=== PATIENT | male | born 1960 | race Caucasian/White ===

== ENCOUNTER 2018-07-21 16:11 | Inpatient (IN) ==
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
[2018-07-21 16:24] LABS: Basophils # 0.1 K/mm3 (0-0.2); Basophils % 0.5 % (0.1-2.0); Eosinophils # 0.8 K/mm3 (0.0-0.4); Eosinophils % 6.3 % (0.1-12.0); Hematocrit 48.1 % (42.0-52.0); Hemoglobin 15.8 g/dL (14.1-18.0); Lymphocytes # 5.1 K/mm3 (0.7-4.5); Lymphocytes % 40.4 % (10-50); Mean Corpuscular HGB Conc 32.9 g/dL (31.8-35.4); Mean Corpuscular Hemoglobin 29.3 pg (27.0-31.2); Mean Corpuscular Volume 88.9 fl (80-94); Mean Platelet Volume 8.2 fl (7.4-10.4); Monocytes # 0.7 K/mm3 (0.1-1.0); Monocytes % 5.9 % (1.7-9.3); Neutrophils # 5.9 K/mm3 (1.8-7.8); Platelet Count 281 K/mm3 (142-424); Red Cell Distribution Width 13.8 % (11.5-17.5); White Blood Count 12.5 K/mm3 (4.8-10.8)
[2018-07-21 16:38] LABS: Blood Urea Nitrogen 10 mg/dL (7-18); Calcium 9.1 mg/dL (8.5-10.1); Carbon Dioxide 26 mmol/L (21.0-32.0); Chloride 103 mmol/L (98-107); Glucose 115 mg/dL (74-106); Sodium 141 mmol/L (136-145)
[2018-07-22 07:10] LABS: Eosinophils # 0.4 K/mm3 (0.0-0.4); Eosinophils % 2.9 % (0.1-12.0)
[2018-07-22 07:16] LABS: Basophils # 0.1 K/mm3 (0-0.2); Basophils % 0.4 % (0.1-2.0); Hematocrit 42.7 % (42.0-52.0); Lymphocytes # 3.1 K/mm3 (0.7-4.5); Mean Corpuscular HGB Conc 32.3 g/dL (31.8-35.4); Mean Corpuscular Hemoglobin 29.2 pg (27.0-31.2); Mean Corpuscular Volume 90.4 fl (80-94); Mean Platelet Volume 7.2 fl (7.4-10.4); Monocytes # 0.6 K/mm3 (0.1-1.0); Monocytes % 4.8 % (1.7-9.3); Neutrophils # 8.7 K/mm3 (1.8-7.8); Neutrophils % 67.9 % (37.0-80.0); Platelet Count 240 K/mm3 (142-424); Red Blood Count 4.73 M/mm3 (4.60-6.20); White Blood Count 12.8 K/mm3 (4.8-10.8)
[2018-07-22 07:18] LABS: Activated Partial Thrombo Time 25.4 seconds (23.6-34.0); INR 0.99 (0.9-1.1); Prothrombin Time 10.2 seconds (9.4-11.8)
[2018-07-22 07:19] LABS: Hemoglobin 13.8 g/dL (14.1-18.0)
[2018-07-22 07:30] LABS: Anion Gap 13.4 mEq/L (5-15); Calcium 8.3 mg/dL (8.5-10.1); Potassium 3.4 mmoL/L (3.5-5.1)
[2018-07-22 07:34] LABS: Chol/HDL Ratio 11.1 (1-3.5); Cholesterol 199 mg/dL (140-200); HDL Cholesterol 18 mg/dL (27-67)
[2018-07-22 08:01] LABS: Triglycerides 511 mg/dL (30-200)
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
--- NOTE | 2018-07-22 14:59 | Pharmacy Consult Notes ---
[facility] Pharmacy VTE Monitoring - Patient Demographics Admission date: 07/22/18 Report Date: 07/22/18 Time: 14:59 Allergies/Adverse Reactions: Patient Allergies Penicillins [PENICILLINS] Allergy (Severe, Verified 07/21/18 16:19) NONRESPONSIVE Height: 1.7 m Weight: 88.082 kg Patient Problems: Current Active Problems STEMI (ST elevation myocardial infarction) (Acute) CAD (coronary artery disease) (Acute) Tobacco use disorder (Acute) Cardiac arrest (Acute) Penicillin allergy (Acute) Hyperglyceridemia (Acute) (HFpEF) heart failure with preserved ejection fraction (Acute) Hypokalemia (Acute) - VTE Risk Labs: VTE Related Lab Results Hgb 13.8 g/dL (14.1-18.0) L D 07/22/18 06:41 Hct 42.7 % (42.0-52.0) 07/22/18 06:41 Plt Count 240 K/mm3 (142-424) 07/22/18 06:41 PT 10.2 seconds (9.4-11.8) 07/22/18 06:41 INR 0.99 (0.9-1.1) 07/22/18 06:41 APTT 25.4 seconds (23.6-34.0) 07/22/18 06:41 BUN 11 mg/dL (7-18) 07/22/18 06:41 Creatinine 0.81 mg/dL (0.70-1.30) 07/22/18 06:41 Estimated Creat Clear 125 mL/min (50-200) 07/22/18 06:41 Was VTE Risk Assessment Performed: Yes VTE Score: 2 VTE Risk Level: Very Low Risk - Prophylaxis VTE Prophylaxis Ordered?: Yes Types of VTE Prophylaxis: TEDS Knee High (ANIA HOSE ORDER PLACED.)
--- NOTE | 2018-07-23 08:59 | Progress Note ---
Internal Medicine - PN: Subj *Date: 07/23/18 *Time: 08:58 Interval history: Patient doing well and is not having any complaints today. Eager to go home today. Exam Vital signs and Labs for Last 24 Hours: Temp Pulse Resp BP Pulse Ox 98.4 F 77 22 149/68 H 97 07/23/18 07:51 07/23/18 07:51 07/23/18 07:51 07/23/18 07:51 07/23/18 08:35 I & O for Last 24 hours: Intake & Output 07/20/18 07/21/18 07/22/18 07/23/18 11:59 11:59 11:59 11:59 Intake Total 2913 / 2913 1680 / 1680 Output Total 1100 / 1100 Balance 1813 / 1813 1680 / 1680 Weight 194 lb 3 oz 194 lb 6 oz - *Routine HEENT Exam Head: Present: normocephalic Eye: Present: EOMI, PERRL ENT: Present: mucous membranes moist - *Routine Neck Exam Present: supple. Absent: lymphadenopathy - *Routine Respiratory Exam Present: CTA bilaterally - *Routine Cardiovascular Exam Present: RRR - *Routine Abdominal Exam Present: soft, normoactive bowel sounds. Absent: tenderness - *Routine Extremities Exam Absent: cyanosis, clubbing, edema - *Routine Skin Exam Present: warm. Absent: rash - *Routine Neurological Exam Present: alert, oriented X3 Assessment and Plan (1) STEMI (ST elevation myocardial infarction) Current visit: Yes Status: Acute Category: Medical Code(s): I21.3 - ST elevation (STEMI) myocardial infarction of unspecified site (2) CAD (coronary artery disease) Current visit: Yes Status: Acute Category: Medical Code(s): I25.10 - Atherosclerotic heart disease of [place] coronary artery without angina pectoris (3) Cardiac arrest Current visit: Yes Status: Acute Category: Medical Code(s): I46.9 - Cardiac arrest, cause unspecified (4) Tobacco use disorder Current visit: Yes Status: Acute Category: Medical Code(s): F17.200 - Nicotine dependence, unspecified, uncomplicated (5) Hyperglyceridemia Current visit: Yes Status: Acute Category: Medical Code(s): E78.1 - Pure hyperglyceridemia (6) (HFpEF) heart failure with preserved ejection fraction Current visit: Yes Status: Acute Category: Medical Code(s): I50.30 - Unspecified diastolic (congestive) heart failure (7) Hypokalemia Current visit: Yes Status: Acute Category: Medical Code(s): E87.6 - Hypokalemia - Assessment and plan all Dx Assessment and Plan for all problems:: will dc home today with cardiac meds if cardiology agrees.
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
== END 2018-07-23 12:46 | disposition home or self-care (01) | DRG 246 ==
LOC: ER 16:11 → CATHLAB 16:15 → ER 16:31 → CATHLAB 16:31 → 2ND 17:58
PROVIDERS: ADMIT Emergency Medicine; ATTEND Emergency Medicine
CPT/HCPCS: 36415; 71010; 71045; 80048; 80061; 83735; 84484; 85025; 85347; 85610; 85730; 92928; 93005; 93458; 96365; 96367; 96375; 99203; C9600; J0282; J1327; J1644; J2405; Q9967

== ENCOUNTER → 2018-07-31 09:04 | Outpatient (CLI) | payer MEDICAID, SELFPAY ==
[2018-07-31 09:43] LABS: Hematocrit 45.7 % (42.0-52.0); Hemoglobin 15.1 g/dL (14.1-18.0)
[2018-07-31 10:34] LABS: Blood Urea Nitrogen 16 mg/dL (7-18); Creatinine,Serum 0.82 mg/dL (0.70-1.30); Estimated Glomerular Filt Rate 97 ml/min (>60); GFR (African American) 117 ML/MIN (>60)
== END ==
PROVIDERS: Visit Provider Internal Medicine
DX: I25.10 Atherosclerotic heart disease of native coronary artery without angina pectoris (principal); I21.3 ST elevation (STEMI) myocardial infarction of unspecified site; I50.30 Unspecified diastolic (congestive) heart failure; E87.6 Hypokalemia; E87.1 Hypo-osmolality and hyponatremia; F17.200 Nicotine dependence, unspecified, uncomplicated
CPT/HCPCS: 36415; 82565; 84520; 85014; 85018

== ENCOUNTER 2018-09-28 12:04 | Observation (INO) ==
--- NOTE | 2018-09-28 12:19 | Emergency Department Note ---
ED Disposition Clinical Impression: Chest pain Qualifiers: Chest pain type: precordial pain Qualified Code(s): R07.2 - Precordial pain Disposition: Admitted as Observation Condition on Discharge: Good - Critical Care Critical Care Time: No Attestation: On , the high probability of a clinically significant, sudden or life threatening deterioration of the following system(s) required my full and direct attention, intervention and personal management. The time I documented below is in addition to time spent performing reported procedures but includes the following listed in this critical care notation. Medical Decision Making - Medical Records Medical records reviewed: Yes: I reviewed the patient's medical records. - Guzman Inquiry Pt receiving controlled substance: Yes Guzman was queried for this patient: Yes Reference #:: x Reason not queried -: Emergent pt cond-no time Risks and benefits of using a controlled substance: were discussed with pt by me Vital Signs: 09/28/18 12:14 09/28/18 12:34 09/28/18 13:07 Temperature 98.0 F Temperature Source Oral Pulse Rate [Left Radial] 57 L 57 L 65 Respiratory Rate 18 Blood Pressure [Right Arm] 135/85 111/79 142/90 H Blood Pressure Mean [Right Arm] 101 89 107 Blood Pressure Source [Right Arm] Automatic Cuff Automatic Cuff Automatic Cuff Blood Pressure Position [Right Arm] Sitting Sitting Sitting 02 Sat by Pulse Oximetry 98 99 99 Oxygen Delivery Method Room Air Nasal Cannula Room Air Oxygen Flow Rate (LPM) 2 - Lab Data Lab results reviewed: Yes: I reviewed the patient's lab results. Lab Results 09/28/18 12:10: WBC 10.7, RBC 4.98, Hgb 14.7, Hct 47.2, MCV 94.7 H, MCH 29.6, MCHC 31.2 L, RDW 14.3, Plt Count 266, MPV 7.4, Neut % (Auto) 46.4, Lymph % (Auto) 36.6, Perry % (Auto) 6.0, Eos % (Auto) 10.2, Baso % (Auto) 0.8, Neut # (Auto) 5.0, Lymph # (Auto) 3.9, Perry # (Auto) 0.6, Eos # (Auto) 1.1 H, Baso # ( Auto) 0.1 09/28/18 12:10: D-Dimer < 100 09/28/18 12:10: Sodium 143, Potassium 4.3, Chloride 107, Carbon Dioxide 26, Anion Gap 14.3, BUN 14, Creatinine 0.97, Estimated Creat Clear 99, Estimated GFR 79, Est GFR ( Amer) 96, Glucose 114 H, Calcium 8.5, Total Bilirubin 0.3, AST 20, ALT 33, Alkaline Phosphatase 110, Troponin I < 0.02, Total Protein 7.0, Albumin 3.6, Globulin 3.4 H, Albumin/Globulin Ratio 1.1, Lipase 285 Result diagrams: 09/28/18 12:10 09/28/18 12:10 Orders (Tests/Meds): ED MEDICATIONS Discontinued Medications Generic Name Dose Route Start Last Admin Trade Name Freq PRN Reason Stop Dose Admin Morphine Sulfate 2 mg 09/28/18 12:16 09/28/18 12:48 Morphine 2mg/Ml Syringe IV 09/28/18 12:17 2 mg ONCE ONE Administration ORDERS Category Date Time Status ECG Request by Dr/Nse Stat Y 09/28/18 12:16 Ordered - Radiology Data #1 Image(s): Chest Image Reviewed: Yes I have reviewed radiologist's interpretation - ECG Data Tracing #1 I reviewed this ECG and interpreted as documented below: Normal Sinus Rhythm: Yes (no stemi) Medical Decision Narrative: consult d/w Dr Hanson ([facility]), will 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, admit d/w Dr Lopez who directs the pt to be admitted by Dr Alston General Adult HPI - General Stated complaint: chest pain Time Seen by Provider: 09/28/18 12:17 Mode of Arrival: EMS Source of Information: Patient, EMS - History of Present Illness HPI narrative: mild to mod off and on left chest pain tight for one hour, nonrad, no injury, no fever, noncompliant w/ meds, hx NE and stents - Related Data Home Medications Medication Instructions Recorded Confirmed Amlodipine Besylate [Amlodipine 5 mg PO DAILY 09/28/18 09/28/18 5mg tab] Aspirin [Aspirin 81mg chewable 81 mg PO DAILY 09/28/18 09/28/18 tab] Fenofibrate [Tricor 54mg tablet] 54 mg PO DAILY 09/28/18 09/28/18 Metoprolol Succinate 25 mg PO DAILY 09/28/18 09/28/18 Ticagrelor [Brilinta 90mg Tablet] 90 mg PO BID 09/28/18 09/28/18 Allergies Allergy/AdvReac Type Severity Reaction Status Date / Time Penicillins [PENICILLINS] Allergy Severe NONRESPONSI Verified 07/31/18 09:59 VE [facility] History - Hepatitis A Screen Attestation statement:: This patient has been screened for Hepatitis A risk factors. Medical History: Reports:: Arrhythmia, Atherosclerotic Heart Disease, Atrial Fibrillation, Coronary Artery Disease, Hyperlipidemia, Hypertension Denies:: Anxiety, Cancer, Diabetes Mellitus Type 1, Diabetes Mellitus Type 2, MRSA Other Surgeries: Yes: Appendectomy, Cardiac Catheterization, Coronary Stent, Other Amputation: No Fractures: Yes - Social History Smoking Status: Current every day smoker Tobacco Type: cigarettes # Packs/Day (cigarettes): 1 Alcohol Intake: never Substance Use Type: denies use Occupational Status: employed Housing: house Household Members: other - Psychiatric History Pschychiatric History:: Denies:: Anxiety, Post Traumatic Stress Disorder, Suicide Attempt, Psychiatr ic Treatment Family Hx:: Other (lung disease), no Cancer, no Hyperlipidemia ROS Obtained: Yes Systems reviewed as appropriate & no additional complaints - Constitutional Constitutional: Denies fever(s) - Eyes Eyes: Denies change in vision - ENT Ears, Nose, Mouth, and Throat: Denies neck pain - Cardiovascular Cardiovascular: Reports chest pain - Respiratory Respiratory: No dyspnea - Gastrointestinal Gastrointestingal: Denies: abdominal pain - Musculoskeletal Musculoskeletal: Denies back pain - Integumentary/Breasts Skin/Breast: Denies rash - Neurologic Neurologic: Denies dizziness Physical Exam - General General appearance: alert - Head Head exam: atraumatic - Eye Eye exam: Present: normal appearance - ENT ENT exam: Present: normal exam - Neck Neck exam: Present: normal inspection - Chest Chest inspection: Present: normal inspection - Respiratory Respiratory exam: Present: normal lung sounds bilaterally - Cardiovascular Cardiovascular exam: Present: regular rate, normal rhythm - Abdominal Exam Abdominal exam: Present: soft. Absent: tenderness - Extremities Exam Extremities exam: Present: normal inspection - Back Exam Back exam: Absent: vertebral tenderness - Neurological Exam Neurological exam: Present: alert, oriented X3 - Psychiatric Psychiatric exam: Present: normal affect, normal mood - Skin Skin exam: Present: warm, dry
[2018-09-28 12:28] LABS: Basophils # 0.1 K/mm3 (0-0.2); Basophils % 0.8 % (0.1-2.0); Eosinophils # 1.1 K/mm3 (0.0-0.4); Eosinophils % 10.2 % (0.1-12.0); Hematocrit 47.2 % (42.0-52.0); Hemoglobin 14.7 g/dL (14.1-18.0); Lymphocytes # 3.9 K/mm3 (0.7-4.5); Lymphocytes % 36.6 % (10-50); Mean Corpuscular HGB Conc 31.2 g/dL (31.8-35.4); Mean Corpuscular Hemoglobin 29.6 pg (27.0-31.2); Mean Corpuscular Volume 94.7 fl (80-94); Mean Platelet Volume 7.4 fl (7.4-10.4); Monocytes # 0.6 K/mm3 (0.1-1.0); Neutrophils % 46.4 % (37.0-80.0); Platelet Count 266 K/mm3 (142-424); Red Blood Count 4.98 M/mm3 (4.60-6.20); Red Cell Distribution Width 14.3 % (11.5-17.5); White Blood Count 10.7 K/mm3 (4.8-10.8)
[2018-09-28 12:39] LABS: Alanine Aminotransferase 33 U/L (12-78); Albumin Level 3.6 gm/dL (3.4-5.0); Albumin/Globulin Ratio 1.1 (1.1-1.8); Alkaline Phosphatase 110 U/L (46-116); Anion Gap 14.3 mEq/L (5-15); Bilirubin,Total 0.3 mg/dL (0.2-1.0); Blood Urea Nitrogen 14 mg/dL (7-18); Calcium 8.5 mg/dL (8.5-10.1); Carbon Dioxide 26 mmol/L (21.0-32.0); Chloride 107 mmol/L (98-107); Globulin 3.4 gm/dl (1.3-3.2); Glucose 114 mg/dL (74-106); Lipase 285 u/L (73-393); Sodium 143 mmol/L (136-145)
[2018-09-28 12:40] LABS: Aspartate Amino Transferase 20 U/L (15-37); Potassium 4.3 mmoL/L (3.5-5.1)
--- NOTE | 2018-09-28 14:16 | Consult Report ---
History of Present Illness Consult date: 09/28/18 Requesting physician: Barb Lopez Consult reason: chest pain Chief complaint: chest pain Additional Medical History:: 1. Tobacco use, greater than [id number] history 2. History of hyperlipidemia 3. Coronary artery disease A. History of myocardial infarction approximately 2011 with 4 coronary stents placed at the [place], [place] B. STEMI, V. Tach arrest with subsequent cardiac cath, 06/2018 ANGIOGRAPHIC RESULTS: 1. The left main artery angiographically normal 2. The left anterior descending artery had a stent in its midportion. 99.9% in-stent stenosis with LOU II distal flow 3. The circumflex artery had a stent in its midportion. 99% in-stent stenosis with LOU II distal flow 4. Ramus intermedius with stent in its proximal portion with sequential 85% stenosis 5. The right coronary artery large and dominant with 75% eccentric proximal stenosis 6. The OCONNOR ventriculogram reveals normal left ventricular systolic function with an ejection fraction of 60% 7. The left ventricular end-diastolic pressure 12 IMPRESSION: 1. Critical four-vessel coronary artery disease 2. Critical in-stent stenosis in the mid left anterior descending with LOU II distal flow 3. Critical in-stent stenosis in the mid left circumflex with LOU II distal flow 4. Critical in-stent stenosis in the proximal ramus 5. Critical de felton stenosis in the proximal large dominant right coronary artery intermedius 6. Normal left ventricular systolic function 7. Normal left ventricular end-diastolic pressure 8. Successful angioplasty and stenting of the mid left anterior descending, the mid left circumflex, the proximal ramus intermedius and the proximal large dominant right coronary artery with resolute [place] drug-eluting stents resulting in 0% residual stenosis 9. Successful placement of Angio-Seal device in the right common femoral artery PLAN: 1. Brilinta 180 mg x1 now than 90 mg twice daily 2. Amiodarone bolus was given secondary to ventricular tachycardia. Patient will be monitored on telemetry 3. Aggressive risk factor modification 4. History of medication noncompliance 5. HTN History of present illness: 58 yo WM with known CAD, recent multi-vessel stenting with V. fib arrest in 06/2018 presented for evaluation of recurrent chest pain. Symptoms the same as p reviously experienced in 06/2018. Pt relates no money for meds for one month. Symptoms of chest tightness and pressure began after walking to the store today. Came to ER for evaluation. EKG is sinus barrett without acute changes. Initial troponin normal. Cardiology consulted for evaluation. [facility] History Medical History: Reports:: Arrhythmia, Atherosclerotic Heart Disease, Atrial Fibrillation, Coronary Artery Disease, Hyperlipidemia, Hypertension Denies:: Anxiety, Cancer, Diabetes Mellitus Type 1, Diabetes Mellitus Type 2, MRSA *Have you ever received a pneumonia vaccine?: No *Have you received a flu vaccine this season?: No Other Surgeries: Yes: Appendectomy, Cardiac Catheterization, Coronary Stent, Other Amputation: No Fractures: Yes - *Social History Smoking Status: Current every day smoker Tobacco Type: cigarettes # Packs/Day (cigarettes): 1 Alcohol Intake: never Substance Use Type: denies use *Occupational Status:: employed Housing: house Household Members: other *Travel in the last 8 weeks: None - Psychiatric History Expresses thoughts of harming self/others: None Suicide Plan Description: No Plan Pschychiatric History:: Denies:: Anxiety, Post Traumatic Stress Disorder, Suicide Attempt, Psychiatric Treatment Family Hx:: Other (lung disease), no Cancer, no Hyperlipidemia Meds Home Medications Medication Instructions Recorded Confirmed Type Amlodipine Besylate [Amlodipine 5 mg PO DAILY 09/28/18 09/28/18 History 5mg tab] Aspirin [Aspirin 81mg chewable 81 mg PO DAILY 09/28/18 09/28/18 History tab] Fenofibrate [Tricor 54mg tablet] 54 mg PO DAILY 09/28/18 09/28/18 History Metoprolol Succinate 25 mg PO DAILY 09/28/18 09/28/18 History Ticagrelor [Brilinta 90mg Tablet] 90 mg PO BID 09/28/18 09/28/18 History Allergies Allergy/AdvReac Type Severity Reaction Status Date / Time Penicillins [PENICILLINS] Allergy Severe NONRESPONSI Verified 07/31/18 09:59 VE Review of Systems - *Cardiovascular Reports chest pain, Reports shortness of breath with activity - *Respiratory Reports shortness of breath, Reports shortness of breath with activity - *Gastrointestinal Denies abdominal pain, Denies nausea, Denies vomiting - *Genitourinary Denies blood in urine - *Musculoskeletal Denies joint pain, Denies back pain - *Neurologic Denies dizziness Exam Vital signs and Labs for Last 24 Hours: Temp Pulse Resp BP Pulse Ox 98.0 F 65 18 142/90 H 99 09/28/18 12:14 09/28/18 13:07 09/28/18 12:14 09/28/18 13:07 09/28/18 13:07 Laboratory Results - last 24 hr 09/28/18 12:10: WBC 10.7, RBC 4.98, Hgb 14.7, Hct 47.2, MCV 94.7 H, MCH 29.6, MCHC 31.2 L, RDW 14.3, Plt Count 266, MPV 7.4, Neut % (Auto) 46.4, Lymph % (Auto) 36.6, Dickson % (Auto) 6.0, Eos % (Auto) 10.2, Baso % (Auto) 0.8, Neut # (Auto) 5.0, Lymph # (Auto) 3.9, Dickson # (Auto) 0.6, Eos # (Auto) 1.1 H, Baso # (Auto) 0.1 09/28/18 12:10: D-Dimer < 100 09/28/18 12:10: Sodium 143, Potassium 4.3, Chloride 107, Carbon Dioxide 26, Anion Gap 14.3, BUN 14, Creatinine 0.97, Estimated Creat Clear 99, Estimated GFR 79, Est GFR ( Amer) 96, Glucose 114 H, Calcium 8.5, Total Bilirubin 0.3, AST 20, ALT 33, Alkaline Phosphatase 110, Troponin I < 0.02, Total Protein 7.0, Albumin 3.6, Globulin 3.4 H, Albumin/Globulin Ratio 1.1, Lipase 285 I & O for Last 24 hours: Intake & Output 09/26/18 09/27/18 09/28/18 09/29/18 11:59 11:59 11:59 11:59 Weight 185 lb - *Routine HEENT Exam Head: Present: normocephalic Eye: Present: EOMI, PERRL ENT: Present: mucous membranes moist - *Routine Neck Exam Present: supple. Absent: JVD, carotid bruit - *Routine Respiratory Exam Present: CTA bilaterally. Absent: accessory muscle use, rales, rhonchi, wheezes - *Routine Cardiovascular Exam Present: RRR. Absent: murmur, gallop, rubs - *Routine Abdominal Exam Present: soft. Absent: tenderness, distended, guarding - *Routine Extremities Exam Absent: edema, calf tenderness - *Routine Neurological Exam Present: alert, oriented X3, moving all extremities Assessment and Plan (1) Angina pectoris Current visit: Yes Status: Acute Category: Medical Code(s): I20.9 - Angina pectoris, unspecified (2) (HFpEF) heart failure with preserved ejection fraction Current visit: No Status: Acute Qualifiers: Heart failure chronicity: acute on chronic Qualified Code(s): I50.33 - Acute on chronic diastolic (congestive) heart failure Category: Medical Code(s): I50.30 - Unspecified diastolic (congestive) heart failure (3) Recent ST elevation myocardial infarction (STEMI) Current visit: No Status: Acute Category: Medical (4) CAD (coronary artery disease) Current visit: No Status: Chronic Qualifiers: Coronary Disease-Associated Artery/Lesion type: [place] artery [place] vs. transplanted heart: [place] heart Associated angina: without angina Qualified Code(s): I25.10 - Atherosclerotic heart disease of [place] coronary artery without angina pectoris Category: Medical Code(s): I25.10 - Atherosclerotic heart disease of [place] coronary artery without angina pectoris (5) HLD (hyperlipidemia) Current visit: No Status: Chronic Qualifiers: Hyperlipidemia type: mixed hyperlipidemia Qualified Code(s): E78.2 - Mixed hyperlipidemia Category: Medical Code(s): E78.5 - Hyperlipidemia, unspecified (6) HTN (hypertension) Current visit: No Status: Chronic Qualifiers: Hypertension type: essential hypertension Qualified Code(s): I10 - Essential (primary) hypertension Category: Medical Code(s): I10 - Essential (primary) hypertension (7) Tobacco use disorder Current visit: No Status: Chronic Category: Medical Code(s): F17.200 - Nicotine dependence, unspecified, uncomplicated - Assessment and plan all Dx Assessment and Plan for all problems:: 1. Due to recurrent UAP similar to 06/2018 with resultant STEMI/V. Fib arrest treated successfully with multivessel stenting, will recommend repeating cardiac cath. 2. Will need to address medication non-compliance. 3. CHF on CXR, will give lasix.
--- NOTE | 2018-09-28 18:55 | H&P/Discharge Summary ---
General - General Admission date:: 09/28/18 Discharge date: 09/28/18 *Admission Date: 09/28/18 *Chief complaint: Chest pain *History of present illness: This 58-year-old white male has known coronary artery disease. He was admitted to [facility] after he presented in the emergency room stating that he had had chest pain when he walked to the store. He has been a patient of Dr. Mae and a patient of Dr. Barb Diallo as of his last admission in June 2018. He had a myocardial infarction approximately 2011 and had stents placed at the [facility]. In the June 2018 presentation he had a STEMI and had V. tach arrest. He had cardiac catheterization at that time with stenting of the mid LAD, mid left circumflex, the proximal ramus intermedius, and the proximal right coronary artery. He was discharged on multiple medications including Brilinta 90 mg p.o. twice daily, lisinopril 2.5 mg daily, metoprolol 12.5 mg daily 81 mg of aspirin daily. He was seen in follow-up by Radha Hanson and Dr. Lopez. He has not been compliant on medications due to financial difficulties. He smokes 1/2 pack of cigarettes per day. [facility] History Medical History: Reports:: Arrhythmia, Atherosclerotic Heart Disease, Atrial Fibrillation, Coronary Artery Disease, Hyperlipidemia, Hypertension Denies:: Anxiety, Cancer, Diabetes Mellitus Type 1, Diabetes Mellitus Type 2, MRSA *Have you ever received a pneumonia vaccine?: No *Have you received a flu vaccine this season?: No Other Surgeries: Yes: Appendectomy, Cardiac Catheterization, Coronary Stent, Other Amputation: No Fractures: Yes - *Social History Educational Level: Completed High School Smoking Status: Current every day smoker Tobacco Type: cigarettes # Packs/Day (cigarettes): 1 Alcohol Intake: never Substance Use Type: denies use *Occupational Status:: employed Housing: house Household Members: spouse *Travel in the last 8 weeks: None - Psychiatric History Expresses thoughts of harming self/others: None Suicide Plan Description: No Plan Pschychiatric History:: Denies:: Anxiety, Post Traumatic Stress Disorder, Suicide Attempt, Psychiatric Treatment Family Hx:: Other Review of Systems - Constitutional Denies body ache(s), Denies chills - Eyes Denies change in vision - ENT Denies abnormal hearing - *Cardiovascular Reports chest pain, Reports chest pain with activity, Reports lightheadedness, Denies generalized swelling, Denies irregular heart rhythm - *Respiratory Denies chest congestion - *Gastrointestinal Denies abdominal pain - *Genitourinary Denies difficulty urinating - *Musculoskeletal Denies abnormal walking - *Neurologic Denies dizziness - Hematologic/Lymphatic Denies easy bleeding - Allergic/Immunologic Denies GI upset with certain foods Exam Vital signs and Labs for Last 24 Hours: Temp Pulse Resp BP Pulse Ox 97.5 F L 62 16 128/91 H 98 09/28/18 18:15 09/28/18 18:15 09/28/18 18:15 09/28/18 18:15 09/28/18 18:15 Laboratory Results - last 24 hr 09/28/18 12:10: WBC 10.7, RBC 4.98, Hgb 14.7, Hct 47.2, MCV 94.7 H, MCH 29.6, MCHC 31.2 L, RDW 14.3, Plt Count 266, MPV 7.4, Neut % (Auto) 46.4, Lymph % (Auto) 36.6, Sutton % (Auto) 6.0, Eos % (Auto) 10.2, Baso % (Auto) 0.8, Neut # (Auto) 5.0, Lymph # (Auto) 3.9, Sutton # (Auto) 0.6, Eos # (Auto) 1.1 H, Baso # (Auto) 0.1 09/28/18 12:10: D-Dimer < 100 09/28/18 12:10: Sodium 143, Potassium 4.3, Chloride 107, Carbon Dioxide 26, Anion Gap 14.3, BUN 14, Creatinine 0.97, Estimated Creat Clear 99, Estimated GFR 79, Est GFR ( Amer) 96, Glucose 114 H, Calcium 8.5, Total Bilirubin 0.3, AST 20, ALT 33, Alkaline Phosphatase 110, Troponin I < 0.02, Total Protein 7.0, Albumin 3.6, Globulin 3.4 H, Albumin/Globulin Ratio 1.1, Lipase 285 I & O for Last 24 hours: Intake & Output 09/26/18 09/27/18 09/28/18 09/29/18 11:59 11:59 11:59 11:59 Intake Total 240 / 240 Balance 240 / 240 Weight 198 lb 5 oz - Constitutional no acute distress (None at the time of exam.) - *Routine HEENT Exam Head: Present: normocephalic Eye: Present: PERRL ENT: Present: mucous membranes moist - *Routine Neck Exam Present: supple - Routine Chest/Breast/Axilla Exam Chest wall: Absent: tenderness - *Routine Respiratory Exam Present: decreased breath sounds, CTA bilaterally - *Routine Cardiovascular Exam Present: RRR. Absent: murmur, tachycardia - *Routine Abdominal Exam Present: soft (Obese). Absent: tenderness - *Routine Extremities Exam Absent: edema Comments: Surgical scar of the left leg - *Routine Neurological Exam Present: alert, oriented X3 Hospital Course Hospital Course: The patient was admitted through the emergency room and taken for cardiac catheterization by Dr. Gaurav Hanson. There is no report on the chart at this point but Dr. Alston spoke with Dr. Hanson who reported that the patient's coronary arteries were clear. The patient is cleared for discharge from cardiology standpoint according to Dr. Hanson. Indeed the patient was anxious to be discharged. He does have concerns about medication coverage due to financial problems. The patient states that he has upcoming appointments with both Dr. Hanson and Dr. Lopez. Results Labs on day of discharge: Labs from last 24 hours 09/28/18 09/28/18 09/28/18 12:10 12:10 12:10 WBC 10.7 RBC 4.98 Hgb 14.7 Hct 47.2 MCV 94.7 H MCH 29.6 MCHC 31.2 L RDW 14.3 Plt Count 266 MPV 7.4 Neut % (Auto) 46.4 Lymph % (Auto) 36.6 Sutton % (Auto) 6.0 Eos % (Auto) 10.2 Baso % (Auto) 0.8 Neut # (Auto) 5.0 Lymph # (Auto) 3.9 Sutton # (Auto) 0.6 Eos # (Auto) 1.1 H Baso # (Auto) 0.1 D-Dimer < 100 Sodium 143 Potassium 4.3 Chloride 107 Carbon Dioxide 26 Anion Gap 14.3 BUN 14 Creatinine 0.97 Estimated Creat Clear 99 Estimated GFR 79 Est GFR ( Amer) 96 Glucose 114 H Calcium 8.5 Total Bilirubin 0.3 AST 20 ALT 33 Alkaline Phosphatase 110 Troponin I < 0.02 Total Protein 7.0 Albumin 3.6 Globulin 3.4 H Albumin/Globulin Ratio 1.1 Lipase 285 DS: Diagnosis - Discharge Diagnosis (1) Angina pectoris Status: Acute (2) (HFpEF) heart failure with preserved ejection fraction Status: Acute (3) Recent ST elevation myocardial infarction (STEMI) Status: Acute (4) CAD (coronary artery disease) Status: Chronic (5) HLD (hyperlipidemia) Status: Chronic (6) HTN (hypertension) Status: Chronic (7) Tobacco use disorder Status: Chronic Discharge Medications - Medications for Discharge Home Medication List at Discharge: Continued Metoprolol Succinate 25 mg PO DAILY Fenofibrate [Tricor 54mg tablet] 54 mg PO DAILY Aspirin [Aspirin 81mg chewable tab] 81 mg PO DAILY Amlodipine Besylate [Amlodipine 5mg tab] 5 mg PO DAILY Ticagrelor [Brilinta 90mg Tablet] 90 mg PO BID Disposition Disposition: Home, Self-Care
== END 2018-09-28 19:24 | disposition home or self-care (01) ==
LOC: ER 12:04 → 2ND 12:04 → ER 14:40 → 2ND 15:40
PROVIDERS: ADMIT Family Medicine; ATTEND Family Medicine
CPT/HCPCS: 71010; 71045; 80053; 83690; 84484; 85025; 85378; 93005; 93458; 99152; 99284; C1725; C1769; G0378; J1644; Q9967

== ENCOUNTER 2018-11-26 12:18 | Inpatient (IN) ==
--- NOTE | 2018-11-26 12:39 | Emergency Department Note ---
ED Disposition Clinical Impression: RUQ pain, Elevated lipase, Non compliance with medical treatment, Recent ST elevation myocardial infarction (STEMI), CAD (coronary artery disease) Disposition: Admitted as Observation Condition on Discharge: Good Referrals: Provider,Referral, [Primary Care Provider] - Time of Disposition: 14:46 - Critical Care Critical Care Time: No Attestation: On 11/26/18, the high probability of a clinically significant, sudden or life threatening deterioration of the following system(s) required my full and direct attention, intervention and personal management. The time I documented below is in addition to time spent performing reported procedures but includes the following listed in this critical care notation. Medical Decision Making - Medical Records Medical records reviewed: Yes: I reviewed the patient's medical records. - Guzman Inquiry Pt receiving controlled substance: No Guzman was queried for this patient: No Vital Signs: 11/26/18 12:33 11/26/18 12:49 11/26/18 14:19 Temperature 98.2 F Temperature Source Oral Pulse Rate [Left Radial] 89 64 68 Respiratory Rate 18 20 20 Blood Pressure [Right Arm] 132/74 119/64 91/62 L Blood Pressure Mean [Right Arm] 93 82 71 Blood Pressure Source [Right Arm] Automatic Cuff Automatic Cuff Automatic Cuff Blood Pressure Position [Right Arm] Sitting Sitting Sitting 02 Sat by Pulse Oximetry 96 97 96 Oxygen Delivery Method Room Air Room Air Room Air 11/26/18 14:30 Temperature Temperature Source Pulse Rate [Left Radial] 64 Respiratory Rate 20 Blood Pressure [Right Arm] 116/66 Blood Pressure Mean [Right Arm] 82 Blood Pressure Source [Right Arm] Automatic Cuff Blood Pressure Position [Right Arm] Supine 02 Sat by Pulse Oximetry 97 Oxygen Delivery Method Room Air - Lab Data Lab results reviewed: Yes: I reviewed the patient's lab results. Lab Results 11/26/18 12:55: WBC 11.2 H, RBC 4.30 L, Hgb 12.6 L, Hct 41.1 L, MCV 95.5 H, MCH 29.3, MCHC 30.7 L, RDW 14.2, Plt Count 439 H, MPV 7.8, Neut % (Auto) 74.0, Lymph % (Auto) 17.1, Alfalfa % (Auto) 5.5, Eos % (Auto) 3.1, Baso % (Auto) 0.3, Neut # (Auto) 8.3 H, Lymph # (Auto) 1.9, Alfalfa # (Auto) 0.6, Eos # (Auto) 0.3, Baso # (Auto) 0.0 11/26/18 12:55: Sodium 133 L, Potassium 3.8, Chloride 97 L, Carbon Dioxide 26, Anion Gap 13.8, BUN 10, Creatinine 1.10, Estimated Creat Clear 85, Estimated GFR 69, Est GFR ( Amer) 83, Glucose 241 H, Calcium 8.5, Total Bilirubin 0.9, AST 22, ALT 90 H, Alkaline Phosphatase 283 H, Troponin I < 0.02, Total Protein 6.9, Albumin 2.6 L, Globulin 4.3 H, Albumin/Globulin Ratio 0.6 L, Lipase 1072 H Result diagrams: 11/26/18 12:55 11/26/18 12:55 Orders (Tests/Meds): ED MEDICATIONS Generic Name Dose Route Start Last Admin Trade Name Freq PRN Reason Stop Dose Admin Sodium Chloride 1,000 mls @ 500 mls/hr 11/26/18 12:45 11/26/18 12:53 Sod Chlor 0.9% 1000ml Bag IV 12/26/18 12:44 500 mls/hr .Q2H TANNA Administration Sodium Chloride 10 ml 11/26/18 12:37 Saline Flush 10ml Syringe IV 12/26/18 12:36 NEEDED PRN Maintain IV Site Discontinued Medications Generic Name Dose Route Start Last Admin Trade Name Freq PRN Reason Stop Dose Admin Ioversol 75 ml 11/26/18 13:58 11/26/18 13:59 Rad-Optiray 350 100ml Vial IV 11/26/18 13:59 75 ml ONCE ONE Administration Protocol Ketorolac Tromethamine 30 mg 11/26/18 12:35 11/26/18 12:52 Toradol 30mg/Ml Vial IV 11/26/18 12:36 30 mg ONCE ONE Administration Ondansetron HCl 4 mg 11/26/18 12:35 11/26/18 12:52 Zofran 4mg/2ml Vial IV 11/26/18 12:36 4 mg ONCE ONE Administration Pantoprazole Sodium 40 mg 11/26/18 12:37 11/26/18 12:52 Protonix 40mg Vial IV 11/26/18 12:38 40 mg ONCE ONE Administration Sodium Chloride 8 ml 11/26/18 12:37 11/26/18 12:52 Saline Flush 10ml Syringe IV 11/26/18 12:38 8 ml ONCE ONE Administration Sodium Chloride 10 ml 11/26/18 13:58 11/26/18 13:59 Rad-Saline Flush 10ml Syringe IV 11/26/18 13:59 10 ml ONCE ONE Administration ORDERS Category Date Time Status US gallbladder Stat Exams 11/26/18 14:08 Ordered - Physician Consults Physician Consulted: mino Time: 14:44 Reason -: Admission General Adult HPI - General Stated complaint: stomach pain Time Seen by Provider: 11/26/18 12:37 Mode of Arrival: Ambulatory Source of Information: Patient Limitations: No Limitations - History of Present Illness HPI narrative: ruq pain 3 days, can't eat. - Related Data Home Medications Medication Instructions Recorded Confirmed Amlodipine Besylate [Amlodipine 5 mg PO DAILY 09/28/18 09/28/18 5mg tab] Aspirin [Aspirin 81mg chewable 81 mg PO DAILY 09/28/18 09/28/18 tab] Fenofibrate [Tricor 54mg tablet] 54 mg PO DAILY 09/28/18 09/28/18 Metoprolol Succinate 25 mg PO DAILY 09/28/18 09/28/18 Ticagrelor [Brilinta 90mg Tablet] 90 mg PO BID 09/28/18 09/28/18 Allergies Allergy/AdvReac Type Severity Reaction Status Date / Time Penicillins [PENICILLINS] Allergy Severe NONRESPONSI Verified 07/31/18 09:59 [facility] History - Hepatitis A Screen Attestation statement:: This patient has been screened for Hepatitis A risk factors. I have reviewed the patient's past medical history: Yes Medical History: Reports:: Arrhythmia, Atherosclerotic Heart Disease, Atrial Fibrillation, Coronary Artery Disease, Hyperlipidemia, Hypertension Denies:: Anxiety, Cancer, Diabetes Mellitus Type 1, Diabetes Mellitus Type 2, MRSA Other Surgeries: Yes: Appendectomy, Cardiac Catheterization, Coronary Stent, Other Amputation: No Fractures: Yes - Social History Smoking Status: Current every day smoker Tobacco Type: cigarettes # Packs/Day (cigarettes): 1 Alcohol Intake: never Substance Use Type: denies use Occupational Status: employed Housing: house Household Members: spouse - Psychiatric History Pschychiatric History:: Denies:: Anxiety, Post Traumatic Stress Disorder, Suicide Attempt, Psychiatric Treatment Family Hx:: Other ROS Obtained: Yes All systems reviewed & no additional complaints - Constitutional Constitutional: Reports fever(s) - Cardiovascular Cardiovascular: Denies chest pain, Denies chest pain at rest, Denies diaphoresis, Reports irregular heart rhythm - Respiratory Respiratory: No chest congestion, No cough, No dyspnea - Gastrointestinal Gastrointestingal: Reports: abdominal pain, feeling full early, vomiting - Musculoskeletal Musculoskeletal: Reports system reviewed and no additional complaints, except as docu - Integumentary/Breasts Skin/Breast: Denies rash, Denies skin pain - Neurologic Neurologic: Denies numbness, Denies seizure-like activity, Denies vertigo - Hematologic/Lymphatic Henatologic/Lymphatic: Denies easy bleeding, Denies easy bruising Physical Exam - General General appearance: alert, in no apparent distress - Head Head exam: atraumatic, normocephalic, normal inspection - Eye Eye exam: Present: normal appearance, PERRL, EOMI - ENT ENT exam: Present: normal exam, normal oropharynx, mucous membranes moist, TM's normal bilaterally, normal external ear exam - Neck Neck exam: Present: normal inspection, full ROM, trachea midline. Absent: men ingismus, lymphadenopathy - Chest Chest inspection: Present: normal inspection, symmetric chest wall rise. Absent: tenderness - Respiratory Respiratory exam: Present: normal lung sounds bilaterally. Absent: respiratory distress - Cardiovascular Cardiovascular exam: Present: regular rate, normal rhythm. Absent: JVD - Abdominal Exam Abdominal exam: Present: soft, tenderness, Moser's sign. Absent: distention, guarding - Extremities Exam Extremities exam: Present: normal inspection, full ROM, normal capillary refill. Absent: calf tenderness - Back Exam Back exam: Present: normal inspection. Absent: tenderness - Neurological Exam Neurological exam: Present: alert, oriented X3 - Psychiatric Psychiatric exam: Present: normal affect, normal mood - Skin Skin exam: Present: warm, dry, intact, normal color - Lymphatic Lymphatic Findings: no adenopathy
[2018-11-26 13:15] LABS: Basophils % 0.3 % (0.1-2.0); Eosinophils # 0.3 K/mm3 (0.0-0.4); Eosinophils % 3.1 % (0.1-12.0); Hematocrit 41.1 % (42.0-52.0); Hemoglobin 12.6 g/dL (14.1-18.0); Lymphocytes # 1.9 K/mm3 (0.7-4.5); Lymphocytes % 17.1 % (10-50); Mean Corpuscular HGB Conc 30.7 g/dL (31.8-35.4); Mean Corpuscular Volume 95.5 fl (80-94); Mean Platelet Volume 7.8 fl (7.4-10.4); Monocytes # 0.6 K/mm3 (0.1-1.0); Monocytes % 5.5 % (1.7-9.3); Neutrophils # 8.3 K/mm3 (1.8-7.8); Platelet Count 439 K/mm3 (142-424); Red Cell Distribution Width 14.2 % (11.5-17.5); White Blood Count 11.2 K/mm3 (4.8-10.8)
[2018-11-26 13:29] LABS: Alanine Aminotransferase 90 U/L (12-78); Albumin Level 2.6 gm/dL (3.4-5.0); Albumin/Globulin Ratio 0.6 (1.1-1.8); Alkaline Phosphatase 283 U/L (46-116); Anion Gap 13.8 mEq/L (5-15); Aspartate Amino Transferase 22 U/L (15-37); Bilirubin,Total 0.9 mg/dL (0.2-1.0); Blood Urea Nitrogen 10 mg/dL (7-18); Calcium 8.5 mg/dL (8.5-10.1); Carbon Dioxide 26 mmol/L (21.0-32.0); Chloride 97 mmol/L (98-107); Globulin 4.3 gm/dl (1.3-3.2); Glucose 241 mg/dL (74-106); Sodium 133 mmol/L (136-145); Total Protein,Serum 6.9 gm/dL (6.4-8.2)
--- NOTE | 2018-11-26 15:17 | History & Physical Report ---
*Admission Date: 11/26/18 <Elizabeth Dc 11/26/18 15:20> *Chief complaint: abdominal pain <Elizabeth Dc 11/26/18 15:20> *History of present illness: Mr. Roblero is a 58-year-old male with a history of coronary artery disease, recent STEMI, hyperlipidemia, and medical noncompliance who presented to the emergency room for evaluation today because of severe worsening right upper quadrant abdominal pain. He states he has not been feeling well for the past 10 days. He notes that he has been falling and describes the episodes as blacking out and legs giving away. He states he does not pass out though. He also describes a subjective fever with chills and sweating. He denies chest pain and shortness of breath. He does have a cough productive of foamy sputum at times. He has had abdominal pain for the past 5 days and describes nausea and vomiting and one episode of bloody stools. He states he has not been able to eat for the last 2- 1/2 days but has been able to keep fluids down. He has not taken his medicines for approximately 4 weeks. He is voiding without difficulty. With evaluation in the emergency room CT scan showed some retroperitoneal lymph nodes. Amylase and lipase were elevated. He is scheduled for a right upper quadrant ultrasound. He was admitted for further evaluation and treatment. At the time of this exam patient appears comfortable. He states he still has some right upper quadrant discomfort. He is not nauseated at present. He denie s chest pain and shortness of breath. <Elizabeth Dc 11/26/18 16:43> [facility] History Medical History: Reports:: Arrhythmia, Atherosclerotic Heart Disease, Atrial Fibrillation, Coronary Artery Disease, Hyperlipidemia, Hypertension Denies:: Anxiety, Cancer, Diabetes Mellitus Type 1, Diabetes Mellitus Type 2, MRSA <Elizabeth Dc 11/26/18 15:17> *Have you ever received a pneumonia vaccine?: No <DcElizabeth 11/26/18 15:17> *Have you received a flu vaccine this season?: No <Dc,Elizabeth 11/26/18 15:17> Other Surgeries: Yes: Appendectomy, Cardiac Catheterization, Coronary Stent, Other <VandaElizabeth 11/26/18 15:17> Amputation: No <Elizabeth Dc 11/26/18 15:17> Fractures: Yes <Elizabeth Dc 11/26/18 15:17> - *Social History Smoking Status: Current every day smoker <Elizabeth Dc 11/26/18 15:17> Tobacco Type: cigarettes <Elizabeth Dc 11/26/18 15:17> # Packs/Day (cigarettes): 1 <Elizabeth Dc 11/26/18 15:17> Alcohol Intake: never <Elizabeth Dc 11/26/18 15:17> Substance Use Type: denies use <Elizabeth Dc 11/26/18 15:17> *Occupational Status:: other (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; 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.) <Elizabeth Dc 11/26/18 16:34> Housing: house <Elizabeth Dc 11/26/18 15:17> Household Members: spouse <Elizabeth Dc 11/26/18 15:17> *Travel in the last 8 weeks: None <Elizabeth Dc 11/26/18 15:17> - Psychiatric History Pschychiatric History:: Denies:: Anxiety, Post Traumatic Stress Disorder, Suicide Attempt, Psychiatric Treatment <Elizabeth Dc 11/26/18 15:17> Family Hx:: Cancer, Diabetes, Other <Elizabeth Dc 11/26/18 16:34> Review of Systems - Constitutional Reports chills, Reports excessive sweating, Reports fever(s) <Kenzie Dchy 11/26/18 16:34> - Eyes Reports blurry vision (Prior to his falls) <Kenzie Dchy 11/26/18 16:34> - ENT Denies ear pain, Denies sore throat <Kenzie Dchy 11/26/18 16:34> - *Cardiovascular Denies chest pain, Denies shortness of breath, Denies irregular heart rhythm <Kenzie Dchy 11/26/18 16:34> - *Respiratory Denies chest congestion, Denies cough, Denies shortness of breath <Elizabeth Dc 11/26/18 16:34> - *Gastrointestinal Reports abdominal pain, Reports change in bowel habits, Reports bright, red blood in stools, Reports nausea, Reports vomiting, Denies coffee ground vomit, Denies constipation, Denies heartburn, Denies vomiting blood, Denies black, tarry stools <Elizabeth Dc 11/26/18 16:34> - *Genitourinary Denies painful urination, Denies blood in urine <Elizabeth Dc 11/26/18 16:34> - *Musculoskeletal Comments: Recent falls <Elizabeth Dc 11/26/18 16:34> - *Neurologic Reports dizziness, Reports frequent falls, Reports loss of vision, Denies abnormal speech, Denies seizure-like activity, Denies headache(s), Denies numbness, Denies seizure-like activity, Denies dizziness <Elizabeth Dc 11/26/18 16:34> Meds Home Medications Medication Instructions Recorded Confirmed Type Amlodipine Besylate [Amlodipine 5 mg PO DAILY 09/28/18 11/26/18 History 5mg tab] Aspirin [Aspirin 81mg chewable 81 mg PO DAILY 09/28/18 11/26/18 History tab] Fenofibrate [Tricor 54mg tablet] 54 mg PO DAILY 09/28/18 11/26/18 History Metoprolol Succinate 25 mg PO DAILY 09/28/18 11/26/18 History Ticagrelor [Brilinta 90mg Tablet] 90 mg PO BID 09/28/18 11/26/18 History <Iglesia Vazquez - 11/26/18 17:08> Allergies Allergy/AdvReac Type Severity Reaction Status Date / Time Penicillins [PENICILLINS] Allergy Severe NONRESPONSI Verified 07/31/18 09:59 VE <GeorgeIglesia - 11/26/18 17:08> Exam Vital signs and Labs for Last 24 Hours: Temp Pulse Resp BP Pulse Ox 98.4 F 75 20 89/62 L 99 11/26/18 15:50 11/26/18 15:50 11/26/18 15:50 11/26/18 16:15 11/26/18 15:42 Laboratory Results - last 24 hr 11/26/18 12:55: WBC 11.2 H, RBC 4.30 L, Hgb 12.6 L, Hct 41.1 L, MCV 95.5 H, MCH 29.3, MCHC 30.7 L, RDW 14.2, Plt Count 439 H, MPV 7.8, Neut % (Auto) 74.0, Lymph % (Auto) 17.1, [place] % (Auto) 5.5, Eos % (Auto) 3.1, Baso % (Auto) 0.3, Neut # (Auto) 8.3 H, Lymph # (Auto) 1.9, [place] # (Auto) 0.6, Eos # (Auto) 0.3, Baso # (Auto) 0.0 11/26/18 12:55: Sodium 133 L, Potassium 3.8, Chloride 97 L, Carbon Dioxide 26, Anion Gap 13.8, BUN 10, Creatinine 1.10, Estimated Creat Clear 85, Estimated GFR 69, Est GFR ( Amer) 83, Glucose 241 H, Calcium 8.5, Total Bilirubin 0.9, AST 22, ALT 90 H, Alkaline Phosphatase 283 H, Troponin I < 0.02, Total Protein 6.9, Albumin 2.6 L, Globulin 4.3 H, Albumin/Globulin Ratio 0.6 L, Lipase 1072 H 11/26/18 12:55: Amylase 129 H <Delmont,Iglesia - 11/26/18 17:08> Temp Pulse Resp BP Pulse Ox 98.2 F 64 20 116/66 97 11/26/18 12:33 11/26/18 14:30 11/26/18 14:30 11/26/18 14:30 11/26/18 14:30 Laboratory Results - last 24 hr 11/26/18 12:55: WBC 11.2 H, RBC 4.30 L, Hgb 12.6 L, Hct 41.1 L, MCV 95.5 H, MCH 29.3, MCHC 30.7 L, RDW 14.2, Plt Count 439 H, MPV 7.8, Neut % (Auto) 74.0, Lymph % (Auto) 17.1, [place] % (Auto) 5.5, Eos % (Auto) 3.1, Baso % (Auto) 0.3, Neut # (Auto) 8.3 H, Lymph # (Auto) 1.9, [place] # (Auto) 0.6, Eos # (Auto) 0.3, Baso # (Auto) 0.0 11/26/18 12:55: Sodium 133 L, Potassium 3.8, Chloride 97 L, Carbon Dioxide 26, Anion Gap 13.8, BUN 10, Creatinine 1.10, Estimated Creat Clear 85, Estimated GFR 69, Est GFR ( Amer) 83, Glucose 241 H, Calcium 8.5, Total Bilirubin 0.9, AST 22, ALT 90 H, Alkaline Phosphatase 283 H, Troponin I < 0.02, Total Protein 6.9, Albumin 2.6 L, Globulin 4.3 H, Albumin/Globulin Ratio 0.6 L, Lipase 1072 H <Elizabeth Dc 11/26/18 15:17> I & O for Last 24 hours: Intake & Output 11/23/18 11/24/18 11/25/18 11/26/18 23:59 23:59 23:59 23:59 Weight 195 lb 6 oz <Iglesia Vazquez - 11/26/18 17:08> Intake & Output 11/24/18 11/25/18 11/26/18 11/27/18 11:59 11:59 11:59 11:59 Weight 180 lb <Elizabeth cD 11/26/18 15:17> Radiology Reports for the Last 24 Hours: 11/26/2018 CT of the abdomen/pelvis IMPRESSION: 1. There is mild retroperitoneal adenopathy. There is also mild haziness of the retroperitoneal fat of questionable clinical significance and could be inflammatory/infectious or even neoplastic. Follow-up is suggested. 2. Colonic diverticulosis. 3. Otherwise negative CT abdomen pelvis <Elizabeth Dc 11/26/18 15:17> - Constitutional no acute distress <Elizabeth Dc 11/26/18 16:34> - *Routine HEENT Exam Eye: Present: PERRL. Absent: conjunctival icterus, scleral injection <Elizabeth Dc 11/26/18 16:34> ENT: Present: mucous membranes moist, oropharynx clear <Elizabeth Dc 11/26/18 16:34> - *Routine Neck Exam Present: supple. Absent: carotid bruit, lymphadenopathy, thyromegaly <Elizabeth Dc 11/26/18 16:34> - *Routine Respiratory Exam Present: CTA bilaterally (Anteriorly and posteriorly) <Elizabeth Dc 11/26/18 16:34> - *Routine Cardiovascular Exam Present: RRR <Elizabeth Dc - 11/26/18 16:34> - *Routine Abdominal Exam Present: soft, normoactive bowel sounds, tenderness (Right upper quadrant), distended <Elizabeth Dc 11/26/18 16:34> - *Routine Extremities Exam Present: pulses intact. Absent: edema, calf tenderness <Elizabeth Dc - 11/26/18 16:34> - *Routine Neurological Exam Present: alert, oriented X3 <Elizabeth Dc 11/26/18 16:34> Assessment and Plan (1) Elevated lipase Current visit: Yes Status: Acute Category: Medical Code(s): R74.8 - Abnormal levels of other serum enzymes (2) Non compliance with medical treatment Current visit: Yes Status: Acute Category: Medical Code(s): Z91.19 - Patient's noncompliance with other medical treatment and regimen (3) Hyperglycemia Current visit: Yes Status: Acute Category: Medical Code(s): R73.9 - Hyperglycemia, unspecified (4) CAD (coronary artery disease) Current visit: Yes Status: Chronic Qualifiers: Category: Medical Code(s): I25.10 - Atherosclerotic heart disease of [place] coronary artery without angina pectoris (5) Hyperglycemia Current visit: Yes Status: Acute Category: Medical Code(s): R73.9 - Hyperglycemia, unspecified (6) Near syncope Current visit: Yes Status: Acute Category: Medical Code(s): R55 - Syncope and collapse (7) Rectal bleeding Current visit: Yes Status: Acute Category: Medical Code(s): K62.5 - Hemorrhage of anus and rectum (8) Recurrent falls Current visit: Yes Status: Acute Category: Medical Code(s): R29.6 - Repeated falls (9) Tobacco use disorder Current visit: No Status: Chronic Category: Medical Code(s): F17.200 - Nicotine dependence, unspecified, uncomplicated (10) Recent ST elevation myocardial infarction (STEMI) Current visit: Yes Status: Acute Category: Medical (11) Pancreatitis Current visit: Yes Status: Acute Category: Medical Code(s): K85.90 - Acute pancreatitis without necrosis or infection, unspecified <Iglesia Vazquez - 11/26/18 17:08> (1) Elevated lipase Current visit: Yes Status: Acute Category: Medical Code(s): R74.8 - Abnormal levels of other serum enzymes (2) Non compliance with medical treatment Current visit: Yes Status: Acute Category: Medical Code(s): Z91.19 - Patient's noncompliance with other medical treatment and regimen (3) Hyperglycemia Current visit: Yes Status: Acute Category: Medical Code(s): R73.9 - Hyperglycemia, unspecified (4) CAD (coronary artery disease) Current visit: Yes Status: Chronic Category: Medical Code(s): I25.10 - Atherosclerotic heart disease of [place] coronary artery without angina pectoris (5) Hyperglycemia Current visit: Yes Status: Acute Category: Medical Code(s): R73.9 - Hyperglycemia, unspecified (6) Near syncope Current visit: Yes Status: Acute Category: Medical Code(s): R55 - Syncope and collapse (7) Rectal bleeding Current visit: Yes Status: Acute Category: Medical Code(s): K62.5 - Hemorrhage of anus and rectum (8) Recurrent falls Current visit: Yes Status: Acute Category: Medical Code(s): R29.6 - Repeated falls (9) Tobacco use disorder Current visit: No Status: Chronic Category: Medical Code(s): F17.200 - Nicotine dependence, unspecified, uncomplicated (10) Recent ST elevation myocardial infarction (STEMI) Current visit: Yes Status: Acute Category: Medical (11) Pancreatitis Current visit: Yes Status: Acute Category: Medical Code(s): K85.90 - Acute pancreatitis without necrosis or infection, unspecified <Elizabeth Dc - 11/26/18 16:35> - Assessment and plan all Dx Assessment and Plan for all problems:: Saw patient agree with above note. <Iglesia Vazquez - 11/26/18 17:08> IV fluids. Patient has been seen by cardiology and echocardiogram will be completed. He will be placed on telemetry. We will also do a carotid ultrasound due to his near syncopal episodes. We will obtain additional labs to include an A1c, lipid profile for triglycerides, stool for occult blood. GI rest. And right upper quadrant ultrasound. <Elizabeth Dc - 11/26/18 16:43>
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
[2018-11-26 17:11] LABS: Chol/HDL Ratio 10.3 (1-3.5)
[2018-11-27 06:21] LABS: Basophils % 0.3 % (0.1-2.0); Eosinophils # 0.4 K/mm3 (0.0-0.4); Eosinophils % 3.6 % (0.1-12.0); Hematocrit 37.3 % (42.0-52.0); Hemoglobin 11.5 g/dL (14.1-18.0); Lymphocytes # 1.6 K/mm3 (0.7-4.5); Lymphocytes % 17.1 % (10-50); Mean Corpuscular HGB Conc 30.9 g/dL (31.8-35.4); Mean Corpuscular Volume 95.7 fl (80-94); Mean Platelet Volume 7.4 fl (7.4-10.4); Monocytes # 0.6 K/mm3 (0.1-1.0); Monocytes % 5.9 % (1.7-9.3); Neutrophils % 73.1 % (37.0-80.0); Platelet Count 422 K/mm3 (142-424); Red Cell Distribution Width 14.1 % (11.5-17.5); White Blood Count 9.6 K/mm3 (4.8-10.8)
[2018-11-27 06:32] LABS: Albumin Level 2.4 gm/dL (3.4-5.0); Albumin/Globulin Ratio 0.6 (1.1-1.8); Anion Gap 10.2 mEq/L (5-15); Calcium 8.3 mg/dL (8.5-10.1); Globulin 3.9 gm/dl (1.3-3.2); Total Protein,Serum 6.3 gm/dL (6.4-8.2)
--- NOTE | 2018-11-27 07:49 | Carotid Imaging Report ---
"Cerebrovascular Exam Indications: 780.4 Vertigo. 780.2 Syncope and collapse. 784.3 Aphasia. IMPRESSIONS 1. The bilateral vertebral arteries are patent with normal antegrade flow. 2. Study suggests 20-49% stenosis involving the right internal carotid artery, upper end of scale. 3. Study suggests 50-69% stenosis involving the left internal carotid artery, lower end of scale. 4. Difficult study, pt moved thru out exam. Carotid duplex study. Complete study and Doppler flow study including spectral analysis, color and kerr scale imaging. Height: Height: 167.6cm. Height: 66in. Weight: Weight: 88.5kg. Weight: 194.6lb. Body mass index: BMI: 31.5kg/m^2. Body surface area: BSA: 2.06m^2. Location: Vascular laboratory. Patient status: Inpatient. Tables: Arterial flow: + +--------+--------+ |Location |V sys |V ed | + +--------+--------+ |Right CCA - proximal|71.2cm/s|26.2cm/s| + +--------+--------+ |Right CCA - distal |59.8cm/s|16.6cm/s| + +--------+--------+ |Right ECA |108cm/s |--------| + +--------+--------+ |Right ICA - proximal|137cm/s |62.9cm/s| + +--------+--------+ |Right ICA - mid |133cm/s |57.4cm/s| + +--------+--------+ |Right ICA - distal |129cm/s |48.7cm/s| + +--------+--------+ |Right vertebral |35.8cm/s|--------| + +--------+--------+ |Left CCA - proximal |80.1cm/s|29.1cm/s| + +--------+--------+ |Left CCA - distal |65.2cm/s|26.7cm/s| + +--------+--------+ |Left ECA |120cm/s |--------| + +--------+--------+ |Left ICA - proximal |113cm/s |49cm/s | + +--------+--------+ |Left ICA - mid |155cm/s |56.6cm/s| + +--------+--------+ |Left ICA - distal |141cm/s |45.6cm/s| + +--------+--------+ |Left vertebral |44.5cm/s|--------| + +--------+--------+ Velocity ratios: + + + + + + | |Right, V sys|Right, V ed|Left, V sys|Left, V ed| + + + + + + |Max ICA/dist CCA|2.29 |3.79 |2.38 |2.12 | + + + + + + (Report amended ) Electronically signed by: Gonsalo Kaminski [id number]"
--- NOTE | 2018-11-27 07:58 | Progress Note ---
Subjective Date: 11/27/18 Time: 07:55 Principal diagnosis: pancreatitis, medication non-compliance Interval history: 58-year-old white male in bed. Some shivering noted while talking with patient. He is slightly upset that he has not been able to eat or drink since he was admitted and is considering leaving after the abdominal ultrasound obtained if he is unable to eat at that point. Patient denies any chest pain, pressure or tightness. Nursing relates temperature up to 102 overnight. Exam Vital signs and Labs for Last 24 Hours: Temp Pulse Resp BP Pulse Ox 99.2 F 59 L 19 93/54 L 92 L 11/27/18 04:00 11/27/18 04:00 11/27/18 04:00 11/27/18 04:00 11/27/18 04:00 Laboratory Results - last 24 hr 11/26/18 12:55: WBC 11.2 H, RBC 4.30 L, Hgb 12.6 L, Hct 41.1 L, MCV 95.5 H, MCH 29.3, MCHC 30.7 L, RDW 14.2, Plt Count 439 H, MPV 7.8, Neut % (Auto) 74.0, Lymph % (Auto) 17.1, [place] % (Auto) 5.5, Eos % (Auto) 3.1, Baso % (Auto) 0.3, Neut # (Auto) 8.3 H, Lymph # (Auto) 1.9, [place] # (Auto) 0.6, Eos # (Auto) 0.3, Baso # (Auto) 0.0 11/26/18 12:55: Sodium 133 L, Potassium 3.8, Chloride 97 L, Carbon Dioxide 26, Anion Gap 13.8, BUN 10, Creatinine 1.10, Estimated Creat Clear 85, Estimated GFR 69, Est GFR ( Amer) 83, Glucose 241 H, Calcium 8.5, Total Bilirubin 0.9, AST 22, ALT 90 H, Alkaline Phosphatase 283 H, Troponin I < 0.02, Total Protein 6.9, Albumin 2.6 L, Globulin 4.3 H, Albumin/Globulin Ratio 0.6 L, Lipase 1072 H 11/26/18 12:55: Amylase 129 H 11/26/18 16:48: Hemoglobin A1c 5.8 11/26/18 16:48: Triglycerides 285 H, Cholesterol 165, LDL Cholesterol 92, VLDL Cholesterol 57 H, HDL Cholesterol 16 L, Cholesterol/HDL Ratio 10.3 H 11/27/18 05:47: WBC 9.6, RBC 3.90 L, Hgb 11.5 L, Hct 37.3 L, MCV 95.7 H, MCH 29.5, MCHC 30.9 L, RDW 14.1, Plt Count 422, MPV 7.4, Neut % (Auto) 73.1, Lymph % (Auto) 17.1, [place] % (Auto) 5.9, Eos % (Auto) 3.6, Baso % (Auto) 0.3, Neut # (Auto) 7.0, Lymph # (Auto) 1.6, [place] # (Auto) 0.6, Eos # (Auto) 0.4, Baso # (A uto) 0.0 11/27/18 05:47: Sodium 137, Potassium 4.2, Chloride 101, Carbon Dioxide 30, Anion Gap 10.2, BUN 12, Creatinine 1.07, Estimated Creat Clear 96, Estimated GFR 71, Est GFR ( Amer) 86, Glucose 104 D, Calcium 8.3 L, Total Bilirubin 1.0, AST 30 D, ALT 77, Alkaline Phosphatase 234 H, Total Protein 6.3 L, Albumin 2.4 L, Globulin 3.9 H, Albumin/Globulin Ratio 0.6 L, Amylase 66 D 11/27/18 05:47: Lipase 329 I & O for Last 24 hours: Intake & Output 11/24/18 11/25/18 11/26/18 11/27/18 11:59 11:59 11:59 11:59 Weight 198 lb 1 oz - *Routine HEENT Exam Head: Present: normocephalic Eye: Present: EOMI, PERRL ENT: Present: mucous membranes moist - *Routine Respiratory Exam Present: CTA bilaterally. Absent: accessory muscle use, rales, rhonchi, wheezes - *Routine Cardiovascular Exam Present: RRR. Absent: murmur, gallop, rubs - *Routine Neurological Exam Present: alert, oriented X3, moving all extremities Progress Note: A&P (1) Elevated lipase Status: Acute Current Visit: Yes (2) Non compliance with medical treatment Status: Acute Current Visit: Yes (3) Recent ST elevation myocardial infarction (STEMI) Status: Acute Current Visit: Yes (4) CAD (coronary artery disease) Status: Chronic Current Visit: Yes (5) Recurrent falls Status: Acute Current Visit: Yes (6) RUQ pain Status: Acute Current Visit: Yes (7) Tobacco use disorder Status: Chronic Current Visit: No Assessment and Plan for All Diagnoses:: 1. Aspirin has been restarted. 2. Carotid ultrasound shows mild to moderate FUENTES stenosis and moderate LICA stenosis. Continue medical therapy with aspirin, Plavix and statin therapy once taking p.o. meds and no plans for surgery. 3. Repeat amylase and lipase normal. 4. Continue IV fluid boluses. 5. Holding blood pressure medications at this time due to continued systolic pressure in the 90s.
--- NOTE | 2018-11-27 08:26 | Pharmacy Consult Notes ---
[facility] Pharmacy VTE Monitoring - Patient Demographics Admission date: 11/27/18 Report Date: 11/27/18 Time: 08:26 Allergies/Adverse Reactions: Patient Allergies Penicillins [PENICILLINS] Allergy (Severe, Verified 07/31/18 09:59) NONRESPONSIVE Height: 1.68 m Weight: 89.84 kg Patient Problems: Current Active Problems (Updated 11/26/18 @ 16:43 by Elizabeth Dc APRN) RUQ pain (Acute) Elevated lipase (Acute) Non compliance with medical treatment (Acute) Recurrent falls (Acute) Hyperglycemia (Acute) Hyperglycemia (Acute) Near syncope (Acute) Rectal bleeding (Acute) Pancreatitis (Acute) Recent ST elevation myocardial infarction (STEMI) (Acute) CAD (coronary artery disease) (Chronic) - VTE Risk Labs: VTE Related Lab Results Hgb 11.5 g/dL (14.1-18.0) L 11/27/18 05:47 Hct 37.3 % (42.0-52.0) L 11/27/18 05:47 Plt Count 422 K/mm3 (142-424) 11/27/18 05:47 BUN 12 mg/dL (7-18) 11/27/18 05:47 Creatinine 1.07 mg/dL (0.70-1.30) 11/27/18 05:47 Estimated Creat Clear 96 mL/min (50-200) 11/27/18 05:47 Was VTE Risk Assessment Performed: Yes VTE Score: 2 VTE Risk Level: Very Low Risk Clinical Trial Participant: No - Prophylaxis VTE Prophylaxis Ordered?: Yes Types of VTE Prophylaxis: TEDS Knee High
--- NOTE | 2018-11-27 09:27 | Progress Note ---
<Elizabeth Dc - Last Filed: 11/27/18 09:24> Internal Medicine - PN: Subj *Date: 11/27/18 *Time: 09:24 Interval history: Patient is angry this morning. He has been down for ultrasound of his right upper quadrant and has been n.p.o. He is demanding something to eat. He does not want liquids he wants something solid. He states he will sign out AMA if he does not receive something solid and asked for papers to sign. Bargained with him without mail. He said this would be good. He will also try some applesauce along with the liquids. He denies chest pain and shortness of breath. Right now he has no abdominal pain. Bowels have not moved. He voids QS. Ambulates independently. He has had a fever throughout the night. Amylase and lipase have returned to normal. Exam Vital signs and Labs for Last 24 Hours: Temp Pulse Resp BP Pulse Ox 102.2 F H 84 18 135/64 97 11/27/18 08:00 11/27/18 08:00 11/27/18 08:00 11/27/18 08:00 11/27/18 08:00 Laboratory Results - last 24 hr 11/26/18 12:55: WBC 11.2 H, RBC 4.30 L, Hgb 12.6 L, Hct 41.1 L, MCV 95.5 H, MCH 29.3, MCHC 30.7 L, RDW 14.2, Plt Count 439 H, MPV 7.8, Neut % (Auto) 74.0, Lymph % (Auto) 17.1, [place] % (Auto) 5.5, Eos % (Auto) 3.1, Baso % (Auto) 0.3, Neut # (Auto) 8.3 H, Lymph # (Auto) 1.9, [place] # (Auto) 0.6, Eos # (Auto) 0.3, Baso # (Auto) 0.0 11/26/18 12:55: Sodium 133 L, Potassium 3.8, Chloride 97 L, Carbon Dioxide 26, Anion Gap 13.8, BUN 10, Creatinine 1.10, Estimated Creat Clear 85, Estimated GFR 69, Est GFR ( Amer) 83, Glucose 241 H, Calcium 8.5, Total Bilirubin 0.9, AST 22, ALT 90 H, Alkaline Phosphatase 283 H, Troponin I < 0.02, Total Protein 6.9, Albumin 2.6 L, Globulin 4.3 H, Albumin/Globulin Ratio 0.6 L, Lipase 1072 H 11/26/18 12:55: Amylase 129 H 11/26/18 16:48: Hemoglobin A1c 5.8 11/26/18 16:48: Triglycerides 285 H, Cholesterol 165, LDL Cholesterol 92, VLDL Cholesterol 57 H, HDL Cholesterol 16 L, Cholesterol/HDL Ratio 10.3 H 11/27/18 05:47: WBC 9.6, RBC 3.90 L, Hgb 11.5 L, Hct 37.3 L, MCV 95.7 H, MCH 29.5, MCHC 30.9 L, RDW 14.1, Plt Count 422, MPV 7.4, Neut % (Auto) 73.1, Lymph % (Auto) 17.1, [place] % (Auto) 5.9, Eos % (Auto) 3.6, Baso % (Auto) 0.3, Neut # (Auto) 7.0, Lymph # (Auto) 1.6, [place] # (Auto) 0.6, Eos # (Auto) 0.4, Baso # (Auto) 0.0 11/27/18 05:47: Sodium 137, Potassium 4.2, Chloride 101, Carbon Dioxide 30, Anion Gap 10.2, BUN 12, Creatinine 1.07, Estimated Creat Clear 96, Estimated GFR 71, Est GFR ( Amer) 86, Glucose 104 D, Calcium 8.3 L, Total Bilirubin 1.0, AST 30 D, ALT 77, Alkaline Phosphatase 234 H, Total Protein 6.3 L, Albumin 2.4 L, Globulin 3.9 H, Albumin/Globulin Ratio 0.6 L, Amylase 66 D 11/27/18 05:47: Lipase 329 I & O for Last 24 hours: Intake & Output 11/24/18 11/25/18 11/26/18 11/27/18 11:59 11:59 11:59 11:59 Intake Total 2571 / 2571 Balance 2571 / 2571 Weight 198 lb 1 oz - Constitutional no acute distress, agitated (He is angry) - *Routine Respiratory Exam Present: CTA bilaterally (Anteriorly and posteriorly) - *Routine Cardiovascular Exam Present: RRR - *Routine Abdominal Exam Present: soft, normoactive bowel sounds. Absent: tenderness - *Routine Extremities Exam Absent: edema - *Routine Neurological Exam Present: alert, oriented X3 - Routine Psychiatric Exam Present: agitated Assessment and Plan (1) Elevated lipase Current visit: Yes Status: Acute Category: Medical Code(s): R74.8 - Abnormal levels of other serum enzymes (2) Non compliance with medical treatment Current visit: Yes Status: Acute Category: Medical Code(s): Z91.19 - Patient's noncompliance with other medical treatment and regimen (3) Recent ST elevation myocardial infarction (STEMI) Current visit: Yes Status: Acute Category: Medical (4) CAD (coronary artery disease) Current visit: Yes Status: Chronic Category: Medical Code(s): I25.10 - Atherosclerotic heart disease of [place] coronary artery without angina pectoris (5) Recurrent falls Current visit: Yes Status: Acute Category: Medical Code(s): R29.6 - Repeated falls (6) RUQ pain Current visit: Yes Status: Acute Category: Medical Code(s): R10.11 - Right upper quadrant pain (7) Tobacco use disorder Current visit: No Status: Chronic Category: Medical Code(s): F17.200 - Nicotine dependence, unspecified, uncomplicated (8) Agitation Current visit: Yes Status: Acute Category: Medical Code(s): R45.1 - Restlessness and agitation - Assessment and plan all Dx Assessment and Plan for all problems:: Discussed diet with patient. Will try oatmeal and applesauce along with a clear liquids. If he tolerates this within the next are we will try some other foods. Ultrasound results are pending. <Iglesia Vazquez - Last Filed: 11/27/18 10:37> Internal Medicine - PN: Subj *Date: 11/27/18 *Time: 10:37 Exam Vital signs and Labs for Last 24 Hours: Temp Pulse Resp BP Pulse Ox 102.2 F H 84 18 135/64 97 11/27/18 08:00 11/27/18 08:00 11/27/18 08:00 11/27/18 08:00 11/27/18 08:00 Laboratory Results - last 24 hr 11/26/18 12:55: WBC 11.2 H, RBC 4.30 L, Hgb 12.6 L, Hct 41.1 L, MCV 95.5 H, MCH 29.3, MCHC 30.7 L, RDW 14.2, Plt Count 439 H, MPV 7.8, Neut % (Auto) 74.0, Lymph % (Auto) 17.1, [place] % (Auto) 5.5, Eos % (Auto) 3.1, Baso % (Auto) 0.3, Neut # (Auto) 8.3 H, Lymph # (Auto) 1.9, [place] # (Auto) 0.6, Eos # (Auto) 0.3, Baso # (Auto) 0.0 11/26/18 12:55: Sodium 133 L, Potassium 3.8, Chloride 97 L, Carbon Dioxide 26, Anion Gap 13.8, BUN 10, Creatinine 1.10, Estimated Creat Clear 85, Estimated GFR 69, Est GFR ( Amer) 83, Glucose 241 H, Calcium 8.5, Total Bilirubin 0.9, AST 22, ALT 90 H, Alkaline Phosphatase 283 H, Troponin I < 0.02, Total Protein 6.9, Albumin 2.6 L, Globulin 4.3 H, Albumin/Globulin Ratio 0.6 L, Lipase 1072 H 11/26/18 12:55: Amylase 129 H 11/26/18 16:48: Hemoglobin A1c 5.8 11/26/18 16:48: Triglycerides 285 H, Cholesterol 165, LDL Cholesterol 92, VLDL Cholesterol 57 H, HDL Cholesterol 16 L, Cholesterol/HDL Ratio 10.3 H 11/27/18 05:47: WBC 9.6, RBC 3.90 L, Hgb 11.5 L, Hct 37.3 L, MCV 95.7 H, MCH 29.5, MCHC 30.9 L, RDW 14.1, Plt Count 422, MPV 7.4, Neut % (Auto) 73.1, Lymph % (Auto) 17.1, [place] % (Auto) 5.9, Eos % (Auto) 3.6, Baso % (Auto) 0.3, Neut # (Auto) 7.0, Lymph # (Auto) 1.6, [place] # (Auto) 0.6, Eos # (Auto) 0.4, Baso # (Auto) 0.0 11/27/18 05:47: Sodium 137, Potassium 4.2, Chloride 101, Carbon Dioxide 30, Anion Gap 10.2, BUN 12, Creatinine 1.07, Estimated Creat Clear 96, Estimated GFR 71, Est GFR ( Amer) 86, Glucose 104 D, Calcium 8.3 L, Total Bilirubin 1.0, AST 30 D, ALT 77, Alkaline Phosphatase 234 H, Total Protein 6.3 L, Albumin 2.4 L, Globulin 3.9 H, Albumin/Globulin Ratio 0.6 L, Amylase 66 D 11/27/18 05:47: Lipase 329 I & O for Last 24 hours: Intake & Output 11/24/18 11/25/18 11/26/18 11/27/18 23:59 23:59 23:59 23:59 Intake Total 2571 / 2571 Balance 2571 / 2571 Weight 195 lb 6 oz 198 lb 1 oz Assessment and Plan (1) Elevated lipase Current visit: Yes Status: Acute Category: Medical Code(s): R74.8 - Abnormal levels of other serum enzymes (2) Non compliance with medical treatment Current visit: Yes Status: Acute Category: Medical Code(s): Z91.19 - Patient's noncompliance with other medical treatment and regimen (3) Recent ST elevation myocardial infarction (STEMI) Current visit: Yes Status: Acute Category: Medical (4) CAD (coronary artery disease) Current visit: Yes Status: Chronic Qualifiers: Category: Medical Code(s): I25.10 - Atherosclerotic heart disease of [place] coronary artery without angina pectoris (5) Recurrent falls Current visit: Yes Status: Acute Category: Medical Code(s): R29.6 - Repeated falls (6) RUQ pain Current visit: Yes Status: Acute Category: Medical Code(s): R10.11 - Right upper quadrant pain (7) Tobacco use disorder Current visit: No Status: Chronic Category: Medical Code(s): F17.200 - Nicotine dependence, unspecified, uncomplicated (8) Agitation Current visit: Yes Status: Acute Category: Medical Code(s): R45.1 - Restlessness and agitation - Assessment and plan all Dx Assessment and Plan for all problems:: Saw patient, agree with above note.
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
--- NOTE | 2018-11-28 06:58 | Progress Note ---
Subjective Patient reports: feels better Narrative: Patient is up in his room early this morning. He has been upset and is threatening to sign out AMA this morning. He states that "nobody is telling me anything". He does state that his abdomen feels better. Labs are pending. Exam Vital signs and Labs for Last 24 Hours: Temp Pulse Resp BP Pulse Ox 97.9 F 64 22 127/68 97 11/28/18 04:00 11/28/18 04:00 11/28/18 04:00 11/28/18 04:00 11/28/18 04:00 I & O for Last 24 hours: Intake & Output 11/25/18 11/26/18 11/27/18 11/28/18 11:59 11:59 11:59 11:59 Intake Total 2571 / 2571 1802 / 1802 Balance 2571 / 2571 1802 / 1802 Weight 198 lb 1 oz 200 lb 4 oz - *Routine Abdominal Exam Present: soft Comments: He has minimal tenderness on examination. Progress Note: A&P (1) Elevated lipase Status: Acute Current Visit: Yes (2) Non compliance with medical treatment Status: Acute Current Visit: Yes (3) Recent ST elevation myocardial infarction (STEMI) Status: Acute Current Visit: Yes (4) CAD (coronary artery disease) Status: Chronic Current Visit: Yes (5) Recurrent falls Status: Acute Current Visit: Yes (6) RUQ pain Status: Acute Current Visit: Yes (7) Tobacco use disorder Status: Chronic Current Visit: No (8) Agitation Status: Acute Current Visit: Yes Assessment and Plan for All Diagnoses:: I explained to the patient that it looks as though he has pancreatitis of undetermined etiology. I explained to him the nature and details of the disease and treatment plan. Plan will be for MRCP today to evaluate biliary tree to determine potential biliary etiology although ultrasound was negative for ductal dilatation or gallstones. Labs are pending. If MRCP is unremarkable and labs are showing improvement may be able to advance his diet.
[2018-11-28 07:27] LABS: Basophils # 0.1 K/mm3 (0-0.2); Basophils % 0.6 % (0.1-2.0); Eosinophils # 0.3 K/mm3 (0.0-0.4); Eosinophils % 4.1 % (0.1-12.0); Hematocrit 35.5 % (42.0-52.0); Hemoglobin 11.2 g/dL (14.1-18.0); Lymphocytes # 1.9 K/mm3 (0.7-4.5); Lymphocytes % 24.7 % (10-50); Mean Corpuscular HGB Conc 31.7 g/dL (31.8-35.4); Mean Corpuscular Volume 94.4 fl (80-94); Mean Platelet Volume 6.5 fl (7.4-10.4); Monocytes # 0.5 K/mm3 (0.1-1.0); Monocytes % 6.2 % (1.7-9.3); Neutrophils # 4.9 K/mm3 (1.8-7.8); Neutrophils % 64.3 % (37.0-80.0); Platelet Count 417 K/mm3 (142-424); Red Blood Count 3.76 M/mm3 (4.60-6.20); Red Cell Distribution Width 14.1 % (11.5-17.5); White Blood Count 7.5 K/mm3 (4.8-10.8)
[2018-11-28 07:33] LABS: Albumin Level 2.3 gm/dL (3.4-5.0); Albumin/Globulin Ratio 0.6 (1.1-1.8); Anion Gap 6.5 mEq/L (5-15); Bilirubin,Total 0.8 mg/dL (0.2-1.0); Calcium 8.5 mg/dL (8.5-10.1); Total Protein,Serum 6.3 gm/dL (6.4-8.2)
--- NOTE | 2018-11-28 07:55 | Progress Note ---
<Elizabeth Dc - Last Filed: 11/28/18 07:52> Internal Medicine - PN: Subj *Date: 11/28/18 *Time: 07:52 Interval history: Patient states he has had minimal pain. Did require morphine once in early a.m. He denies nausea. He realizes that he is to have another test and is n.p.o. until then. He did enjoy his dinner last night of pork chops, mashed potatoes, and peas. He states the meal did not bother him. He is drinking plenty of fluids. He is voiding QS. His bowels did move and he describes the stool as being bloody. Patient is easily agitated. Easier to redirect today thus far. Denies chest pain and shortness of breath. He ambulates independently without difficulty. He did not present signing out AMA thus far. Dr. Limon visit reviewed and appreciated. He continues to have fever although more ingrained. White blood cell count has returned to normal. Alkaline phosphatase has decreased as well. Per nursing: He has been very agitated and cursing at caregivers as well as Dr. Limon. Exam Vital signs and Labs for Last 24 Hours: Temp Pulse Resp BP Pulse Ox 97.9 F 64 22 127/68 97 11/28/18 04:00 11/28/18 04:00 11/28/18 04:00 11/28/18 04:00 11/28/18 04:00 Laboratory Results - last 24 hr 11/28/18 06:45: WBC 7.5, RBC 3.76 L, Hgb 11.2 L, Hct 35.5 L, MCV 94.4 H, MCH 29.9, MCHC 31.7 L, RDW 14.1, Plt Count 417, MPV 6.5 L, Neut % (Auto) 64.3, Lymph % (Auto) 24.7, [place] % (Auto) 6.2, Eos % (Auto) 4.1, Baso % (Auto) 0.6, Neut # (Auto) 4.9, Lymph # (Auto) 1.9, [place] # (Auto) 0.5, Eos # (Auto) 0.3, Baso # (Auto) 0.1 11/28/18 06:45: Sodium 140, Potassium 4.5, Chloride 106, Carbon Dioxide 32, Anion Gap 6.5, BUN 10, Creatinine 1.01, Estimated Creat Clear 102, Estimated GFR 76, Est GFR ( Amer) 92, Glucose 102, Calcium 8.5, Total Bilirubin 0.8, AST 18 D, ALT 59, Alkaline Phosphatase 213 H, Total Protein 6.3 L, Albumin 2.3 L, Globulin 4.0 H, Albumin/Globulin Ratio 0.6 L, Amylase 38, Lipase 166 I & O for Last 24 hours: Intake & Output 11/25/18 11/26/18 11/27/18 11/28/18 11:59 11:59 11:59 11:59 Intake Total 2571 / 2571 1802 / 1802 Balance 2571 / 2571 1802 / 1802 Weight 198 lb 1 oz 200 lb 4 oz - Constitutional no acute distress Comments: Alert and oriented. Lying in bed and appears comfortable. Playing a game on his computer. - *Routine Respiratory Exam Present: CTA bilaterally (Anteriorly and posteriorly) - *Routine Cardiovascular Exam Present: RRR - *Routine Abdominal Exam Present: soft, normoactive bowel sounds. Absent: tenderness, distended - *Routine Extremities Exam Absent: edema - *Routine Neurological Exam Present: alert, oriented X3 Assessment and Plan (1) Elevated lipase Current visit: Yes Status: Acute Category: Medical Code(s): R74.8 - Abnormal levels of other serum enzymes (2) Non compliance with medical treatment Current visit: Yes Status: Acute Category: Medical Code(s): Z91.19 - Patient's noncompliance with other medical treatment and regimen (3) Recent ST elevation myocardial infarction (STEMI) Current visit: Yes Status: Acute Category: Medical (4) CAD (coronary artery disease) Current visit: Yes Status: Chronic Category: Medical Code(s): I25.10 - Atherosclerotic heart disease of [place] coronary artery without angina pectoris (5) Recurrent falls Current visit: Yes Status: Acute Category: Medical Code(s): R29.6 - Repeated falls (6) RUQ pain Current visit: Yes Status: Acute Category: Medical Code(s): R10.11 - Right upper quadrant pain (7) Tobacco use disorder Current visit: No Status: Chronic Category: Medical Code(s): F17.200 - Nicotine dependence, unspecified, uncomplicated (8) Agitation Current visit: Yes Status: Acute Category: Medical Code(s): R45.1 - Restlessness and agitation (9) Fever Current visit: Yes Status: Acute Category: Medical Code(s): R50.9 - Fever, unspecified - Assessment and plan all Dx Assessment and Plan for all problems:: We will decrease IV fluids and possibly saline lock later. N.p.o. for MRCP this morning. <Iglesia Vazquez - Last Filed: 11/28/18 17:20> Internal Medicine - PN: Subj *Date: 11/28/18 *Time: 17:17 Exam Vital signs and Labs for Last 24 Hours: Temp Pulse Resp BP Pulse Ox 98.4 F 75 19 115/74 99 11/28/18 15:19 11/28/18 16:00 11/28/18 15:19 11/28/18 15:19 11/28/18 15:19 Laboratory Results - last 24 hr 11/28/18 06:45: WBC 7.5, RBC 3.76 L, Hgb 11.2 L, Hct 35.5 L, MCV 94.4 H, MCH 29.9, MCHC 31.7 L, RDW 14.1, Plt Count 417, MPV 6.5 L, Neut % (Auto) 64.3, Lymph % (Auto) 24.7, [place] % (Auto) 6.2, Eos % (Auto) 4.1, Baso % (Auto) 0.6, Neut # (Auto) 4.9, Lymph # (Auto) 1.9, [place] # (Auto) 0.5, Eos # (Auto) 0.3, Baso # (Auto) 0.1 11/28/18 06:45: Sodium 140, Potassium 4.5, Chloride 106, Carbon Dioxide 32, Anion Gap 6.5, BUN 10, Creatinine 1.01, Estimated Creat Clear 102, Estimated GFR 76, Est GFR ( Amer) 92, Glucose 102, Calcium 8.5, Total Bilirubin 0.8, AST 18 D, ALT 59, Alkaline Phosphatase 213 H, Total Protein 6.3 L, Albumin 2.3 L, Globulin 4.0 H, Albumin/Globulin Ratio 0.6 L, Amylase 38, Lipase 166 I & O for Last 24 hours: Intake & Output 11/25/18 11/26/18 11/27/18 11/28/18 23:59 23:59 23:59 23:59 Intake Total 4373 / 4373 600 / 600 Output Total 400 / 400 Balance 4373 / 4373 200 / 200 Weight 195 lb 6 oz 198 lb 1 oz 200 lb 4 oz Assessment and Plan (1) Elevated lipase Current visit: Yes Status: Acute Category: Medical Code(s): R74.8 - Abnormal levels of other serum enzymes (2) Non compliance with medical treatment Current visit: Yes Status: Acute Category: Medical Code(s): Z91.19 - Patient's noncompliance with other medical treatment and regimen (3) Recent ST elevation myocardial infarction (STEMI) Current visit: Yes Status: Acute Category: Medical (4) CAD (coronary artery disease) Current visit: Yes Status: Chronic Qualifiers: Category: Medical Code(s): I25.10 - Atherosclerotic heart disease of [place] coronary artery without angina pectoris (5) Recurrent falls Current visit: Yes Status: Acute Category: Medical Code(s): R29.6 - Repeated falls (6) RUQ pain Current visit: Yes Status: Acute Category: Medical Code(s): R10.11 - Right upper quadrant pain (7) Tobacco use disorder Current visit: No Status: Chronic Category: Medical Code(s): F17.200 - Nicotine dependence, unspecified, uncomplicated (8) Fever Current visit: Yes Status: Acute Category: Medical Code(s): R50.9 - Fever, unspecified (9) Carotid artery stenosis Current visit: Yes Status: Chronic Category: Medical Code(s): I65.29 - Occlusion and stenosis of unspecified carotid artery (10) HTN (hypertension) Current visit: No Status: Chronic Qualifiers: Hypertension type: essential hypertension Qualified Code(s): I10 - Essential (primary) hypertension Category: Medical Code(s): I10 - Essential (primary) hypertension (11) Pancreatitis Current visit: Yes Status: Acute Category: Medical Code(s): K85.90 - Acute pancreatitis without necrosis or infection, unspecified - Assessment and plan all Dx Assessment and Plan for all problems:: Saw patient, MRCP normal. Pt is tolerating an regular diet and is anxious to go home. OK for discharge now. Discussed pancreatitis and avoiding alcohol and needed dietary changes. He was unwilling to take any medications after discharge.
--- NOTE | 2018-11-28 10:05 | Progress Note ---
Subjective Date: 11/28/18 Time: 10:01 Principal diagnosis: pancreatitis, medication non-compliance Interval history: This is a 58-year-old white gentleman who was admitted to the hospital for abdominal pain and pancreatitis. The patient states that he is feeling much be tter this morning. He denies any abdominal pain. He did eat supper last night he states that he tolerated this well without any pain. He denies any chest pain or pressure. He denies any shortness of breath or edema. Chills, nausea, vomiting, diarrhea, PND or orthopnea. The patient did have a fever last night which is improving. His highest temperature through the night last night was 100.6. This morning his temperature is 97.9. He is n.p.o. this morning in preparation for an MRCP. His blood pressure has improved this morning as well. Exam Vital signs and Labs for Last 24 Hours: Temp Pulse Resp BP Pulse Ox 97.9 F 63 17 143/73 H 100 11/28/18 08:00 11/28/18 08:00 11/28/18 08:00 11/28/18 08:00 11/28/18 08:00 Laboratory Results - last 24 hr 11/28/18 06:45: WBC 7.5, RBC 3.76 L, Hgb 11.2 L, Hct 35.5 L, MCV 94.4 H, MCH 29.9, MCHC 31.7 L, RDW 14.1, Plt Count 417, MPV 6.5 L, Neut % (Auto) 64.3, Lymph % (Auto) 24.7, Towns % (Auto) 6.2, Eos % (Auto) 4.1, Baso % (Auto) 0.6, Neut # (Auto) 4.9, Lymph # (Auto) 1.9, [place] # (Auto) 0.5, Eos # (Auto) 0.3, Baso # (Auto) 0.1 11/28/18 06:45: Sodium 140, Potassium 4.5, Chloride 106, Carbon Dioxide 32, Anion Gap 6.5, BUN 10, Creatinine 1.01, Estimated Creat Clear 102, Estimated GFR 76, Est GFR ( Amer) 92, Glucose 102, Calcium 8.5, Total Bilirubin 0.8, AST 18 D, ALT 59, Alkaline Phosphatase 213 H, Total Protein 6.3 L, Albumin 2.3 L, Globulin 4.0 H, Albumin/Globulin Ratio 0.6 L, Amylase 38, Lipase 166 Echocardiogram shows an ejection fraction of 50% with abnormal septal wall motion. There is mild MR. I & O for Last 24 hours: Intake & Output 11/25/18 11/26/18 11/27/18 11/28/18 23:59 23:59 23:59 23:59 Intake Total 4373 / 4373 0 / 0 Balance 4373 / 4373 0 / 0 Weight 195 lb 6 oz 198 lb 1 oz 200 lb 4 oz Narrative: His telemetry strip is sinus rhythm. - Constitutional no acute distress, obese - *Routine HEENT Exam Head: Present: normocephalic, atraumatic Eye: Present: EOMI, PERRL ENT: Present: mucous membranes moist - *Routine Neck Exam Present: supple, full ROM, normal carotid upstroke. Absent: JVD, carotid bruit, lymphadenopathy - *Routine Respiratory Exam Present: CTA bilaterally - *Routine Cardiovascular Exam Present: RRR, Normal S1, Normal S2. Absent: murmur, gallop - *Routine Abdominal Exam Present: soft, normoactive bowel sounds. Absent: tenderness, distended - *Routine Extremities Exam Present: full ROM, pulses intact, normal capillary refill. Absent: cyanosis, clubbing, edema - *Routine Skin Exam Present: intact, warm. Absent: erythema, rash - *Routine Neurological Exam Present: alert, oriented X3, CN II-XII intact. Absent: sensory deficit, motor deficit - Detailed Eye Exam Eyelids: Left normal inspection Progress Note: A&P (1) Elevated lipase Status: Acute Current Visit: Yes (2) Non compliance with medical treatment Status: Acute Current Visit: Yes (3) Recent ST elevation myocardial infarction (STEMI) Status: Acute Current Visit: Yes (4) CAD (coronary artery disease) Status: Chronic Current Visit: Yes (5) Recurrent falls Status: Acute Current Visit: Yes (6) RUQ pain Status: Acute Current Visit: Yes (7) Tobacco use disorder Status: Chronic Current Visit: No (8) Fever Status: Acute Current Visit: Yes (9) Carotid artery stenosis Status: Chronic Current Visit: Yes (10) HTN (hypertension) Status: Chronic Current Visit: No Assessment and Plan for All Diagnoses:: Plan: 1. The patient was admitted with an elevated lipase consistent with pancreatitis. This is being managed per his primary care provider and GI. The patient did undergo an MRCP this morning and they are currently awaiting results. 2. He denies any chest pain or pressure at this time. No plans for invasive cardiac testing. 3. The patient is on aspirin this morning. His Plavix remains on hold. We do recommend restarting Plavix 75 mg p.o. daily once it is safe for the patient to do so. 4. The patient did start tolerating food during the night last night. He states that he has had no abdominal pain since starting to eat. He had dinner last night and he is just not eating breakfast as he was n.p.o. for his abdominal MRCP. 5. We also recommend restarting statin therapy as soon as possible and his metoprolol as his blood pressure has improved. 6. As mentioned above his blood pressure is improving. Once it is safe for the patient to be back on oral medications, we recommend restarting his metoprolol. 7. His LDL goal is less than 55. 8. Carotid artery stenosis is mild to moderate and stable. 9. As mentioned before, before discharge home we do recommend the patient being restarted on aspirin, Plavix, statin and metoprolol for blood pressure. 10. Further recommendations were made pending patient's response to treatment. Next Thank you for the opportunity to help participate in the care of this patient.
--- NOTE | 2018-11-29 16:44 | Discharge Summary ---
General - General Admission date:: 11/26/18 Discharge date: 11/28/18 HPI HPI: Mr. Roblero is a 58-year-old male with a history of coronary artery disease, recent STEMI, hyperlipidemia, and medical noncompliance who presented to the emergency room for evaluation today because of severe worsening right upper quadrant abdominal pain. He states he has not been feeling well for the past 10 days. He notes that he has been falling and describes the episodes as blacking out and legs giving away. He states he does not pass out. He also describes a subjective fever with chills and sweating. He denies chest pain and shortness of breath. He does have a cough productive of foamy sputum at times. He has had abdominal pain for the past 5 days and describes nausea and vomiting and one episode of bloody stools. He states he has not been able to eat for the last 2- 1/2 days but has been able to keep fluids down. He has not taken his medicines for approximately 4 weeks. He is voiding without difficulty. With evaluation in the emergency room CT scan showed some retroperitoneal lymph nodes. Amylase and lipase were elevated. He is scheduled for a right upper quadrant ultrasound. He was admitted for further evaluation and treatment. At the time of this exam patient appears comfortable. He states he still has some right upper quadrant discomfort. He is not nauseated at present. He denies chest pain and shortness of breath. Hospital Course Hospital Course: The patient was started on IV fluids and GI rest and cardiology and surgery were consulted. Cardiology ordered an echo and he was placed on telemetry. A carotid ultrasound was also ordered due to his near syncopal episodes. Additional labs were ordered to include an A1c, lipid profile for triglycerides, and a stool for occult blood test. His A1c was normal and his triglycerides were elevated. He never provided a stool sample. A right upper quadrant ultrasound was also ordered. Cardiology saw the patient and recommended restart ing his aspirin 81 mg daily and his Plavix 75 mg once a day. He had some orthostatic hypotension therefore beta-blockers were held. His gallbladder ultrasound showed a distended gallbladder, but there were no gallstones or significant anomalies. The patient was very angry by the morning of 11/27/2018 and he demanded some solid food and threatened to sign out AMA if he did not receive something solid. He had no abdominal pain. He had a fever throughout the night but his amylase and lipase had returned to normal. Clear liquids along with oatmeal and applesauce were ordered for the patient. He was seen by Dr. Limon who felt his pancreatitis had improved from the laboratory standpoint. He recommended to treat him expectantly for pancreatitis. He felt it could be biliary in origin but this was favored less so than an alternative etiology based on the lack of ductal dilatation on ultrasound and lack of gallstones in the gallbladder. He did recommend an ERCP to evaluate the biliary tree for possible retained stone. The patient's carotid ultrasound showed mild to moderate FUENTES stenosis and moderate LICA stenosis. His echo showed an EF of 50% with abnormal septal motion. Cardiology held his blood pressure medication due to continued systolic pressures in the 90s. The patient's pain improved and he denied any nausea. He tolerated a diet. His white blood cell count returned to normal and his alkaline phosphatase decreased. He still remained very agitated. His IV fluids were decreased and he was made n.p.o. for an MRCP. The MRCP was normal. As the patient was tolerating a diet and anxious to go home, he was stable for discharge. Dr. Vazquez did discuss pancreatitis and avoiding alcohol and making dietary changes. He was unwilling to take any medications after discharge. Objective Vital signs: Temp Pulse Resp BP Pulse Ox 98.4 F 75 19 115/74 99 11/28/18 15:19 11/28/18 16:00 11/28/18 15:19 11/28/18 15:19 11/28/18 15:19 Narrative: - Constitutional no acute distress - *Routine HEENT Exam Eye: Present: PERRL. Absent: conjunctival icterus, scleral injection ENT: Present: mucous membranes moist, oropharynx clear - *Routine Neck Exam Present: supple. Absent: carotid bruit, lymphadenopathy, thyromegaly - *Routine Respiratory Exam Present: CTA bilaterally (Anteriorly and posteriorly) - *Routine Cardiovascular Exam Present: RRR - *Routine Abdominal Exam Present: soft, normoactive bowel sounds, tenderness (Right upper quadrant), distended - *Routine Extremities Exam Present: pulses intact. Absent: edema, calf tenderness - *Routine Neurological Exam Present: alert, oriented X3 DS: Diagnosis - Discharge Diagnosis (1) Elevated lipase Status: Acute (2) Non compliance with medical treatment Status: Acute (3) Recent ST elevation myocardial infarction (STEMI) Status: Acute (4) CAD (coronary artery disease) Status: Chronic (5) Recurrent falls Status: Acute (6) RUQ pain Status: Acute (7) Tobacco use disorder Status: Chronic (8) Fever Status: Acute (9) Carotid artery stenosis Status: Chronic (10) HTN (hypertension) Status: Chronic (11) Pancreatitis Status: Acute Discharge Plan - Patient Discharge Instructions ACTIVITY: Continue current activity DIET: continue same diet Patient Instructions: Fat-Restricted Diet, DI for Pancreatitis, How to Prevent Falls - Follow up Plan Follow up with: Keven Lugo MD [Staff Physician] - 2 weeks (please call for appointments) Gaurav Hanson MD [Staff Physician] - 1 month Disposition: Home, Self-Jail Medications: Home Medications Medication Instructions Recorded Confirmed Type Amlodipine Besylate [Amlodipine 5 mg PO DAILY 09/28/18 11/26/18 History 5mg tab] Aspirin [Aspirin 81mg chewable 81 mg PO DAILY 09/28/18 11/26/18 History tab] Fenofibrate [Tricor 54mg tablet] 54 mg PO DAILY 09/28/18 11/26/18 History Metoprolol Succinate 12.5 mg PO DAILY 09/28/18 11/27/18 History Atorvastatin Calcium [Atorvastatin 40 mg PO HS 11/27/18 11/27/18 History 40mg Tab] Clopidogrel Bisulfate [Plavix 75mg 75 mg PO DAILY 11/27/18 11/27/18 History Tab] Lisinopril [Lisinopril 2.5mg Tab] 2.5 mg PO DAILY 11/27/18 11/27/18 History Prescriptions/Medication Reconciliation: Continued Metoprolol Succinate 12.5 mg PO DAILY Fenofibrate [Tricor 54mg tablet] 54 mg PO DAILY Aspirin [Aspirin 81mg chewable tab] 81 mg PO DAILY Amlodipine Besylate [Amlodipine 5mg tab] 5 mg PO DAILY Lisinopril [Lisinopril 2.5mg Tab] 2.5 mg PO DAILY Atorvastatin Calcium [Atorvastatin 40mg Tab] 40 mg PO HS Clopidogrel Bisulfate [Plavix 75mg Tab] 75 mg PO DAILY
== END 2018-11-28 17:50 | disposition home or self-care (01) | DRG 439 ==
LOC: ER 12:18 → 2ND 14:55
PROVIDERS: ADMIT Family Medicine; ATTEND Family Medicine
CPT/HCPCS: 36415; 74177; 74181; 76376; 76705; 80053; 80061; 82150; 83036; 83690; 84484; 85025; 93005; 93306; 93880; 96365; 96375; 99282; J2405; Q9967

== ENCOUNTER 2019-08-28 18:45 | Observation (INO) | payer MEDICAID, SELFPAY ==
[2019-08-28] VITALS (16 sets, daily range): BP systolic 114–167; BP diastolic 70–104; PULSE 51–85; RESP 15–21; TEMP 36.3–36.8; O2SAT 94–100; BMI 30.5
--- NOTE | 2019-08-28 | IR_ITS ---
APPROVED REPORT Patient Location: Emergent Image Processing Engineer: REED Jenkins RT (R) PROCEDURES Left heart catheterization Left ventriculogram Selective coronary angiogram Drug-eluting stent deployment to the proximal LAD INDICATION Coronary artery disease acute coronary syndrome, Informed consent was obtained prior to the procedure. COMPLICATIONS none Estimated Blood Loss: less than 10 mls TECHNIQUE One percent lidocaine was used to anesthetize the right groin. The right femoral artery was accessed via the Seldinger technique. A 4-Turkish sheath was placed in the right femoral artery. The JL-4 and JR-4 catheter was also used to perform left heart catheterization left ventriculogram and selective coronary angiogram. At the end of the procedure the patient was transferred to the post-op holding area in stable condition for arterial sheath removal. At the end of the diagnostic angiogram therapeutic heparin was administered the 4 Turkish sheath was exchanged for a 6 Turkish sheath. An EBU 3.75 guide catheter was used to intubate the left main artery and a BMW wire was used to traverse the stenosis in the LAD. A 3 mm x 30 mm resolute charo stent was deployed at 20 zeny reducing the severe stenosis to 0%. LOU-3 flow was present before and after the procedure. After achieving excellent angiographic results the apparatus was removed the groin was reprepped gloves were changed sheath was removed and hemostasis was achieved using Perclose device patient was transferred to the postop putting her in stable condition ANGIOGRAPHIC RESULTS The left main artery Normal The left anterior descending artery Has a proximal 70 to 80% in-stent restenotic lesion. The distal portion of the stent is patent. The remaining LAD is normal. The circumflex artery A large ramus intermedius has a very proximal 50% in-stent restenosis lesion. The distal portion of the stent is patent. The circumflex artery itself has a mid vessel concentric 50 to 60% stenosis immediately proximal to a stent which is widely patent The right coronary artery Is a nondominant vessel and has mid vessel 50 to 60% stenosis The OCONNOR ventriculogram reveals Normal 65% The left ventricular end-diastolic pressure 10 mmHg IMPRESSION Severe in-stent restenosis within the proximal LAD Successful drug-eluting stenting to the proximal LAD severe disease reduced to 0% with one drug-eluting stent Persistent moderate stenosis in a very proximal moderate to large sized ramus intermedius as well as moderate stenosis in the mid circumflex artery and mid nondominant right coronary Normal ejection fraction Normal left ventricular end-diastolic pressure PLAN 1. Dual antiplatelet therapy for at least 6 months 2. At this time I favor medical management for the circumflex artery and the ramus intermedius as well as the right coronary artery. Should patient continue to experience angina pectoris I would consider performing FFR on all 3 of these lesions to determine which one has hemodynamic significance. At this time it appears as though patient's angina pectoris almost certainly stems from the proximal LAD lesion 3. Cardiac rehabilitation 4. Avoidance of tobacco products 5. Risk factor modification Electronically signed by : Gaurav Hanson, 08/28/2019 20:14:26
--- NOTE | 2019-08-28 18:45 | ECG_ITS ---
APPROVED REPORT Exam: Resting ECG HR:72 bpm ECG Measurements Heart Rate 72 AXES NV 168 P 55 QRSd 76 QRS 57 QT 370 T 59 QTc 405 <Conclusion> Normal sinus rhythm Normal ECG Electronically signed by : Vimal Acosta, 08/30/2019 16:33:36
--- NOTE | 2019-08-28 18:55 | PC.NURSE ---
contacted dr. 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
--- NOTE | 2019-08-28 18:59 | HMH.EDCP ---
ED Disposition Clinical Impression: Unstable angina pectoris, HLD (hyperlipidemia), Agitation, Angina pectoris, Chest pain, CAD (coronary artery disease) Disposition: Admitted as Observation Condition on Discharge: Good - Critical Care Critical Care Time: No Attestation: On , the high probability of a clinically significant, sudden or life threatening deterioration of the following system(s) required my full and direct attention, intervention and personal management. The time I documented below is in addition to time spent performing reported procedures but includes the following listed in this critical care notation. Medical Decision Making - Medical Records Medical records reviewed: Yes: I reviewed the patient's medical records. - Guzman Inquiry Pt receiving controlled substance: No Vital Signs: 08/28/19 18:52 08/28/19 19:25 08/28/19 19:51 Temperature 98.2 F 98.3 F Temperature Source Oral Oral Pulse Rate 65 Pulse Rate [Right Radial] 85 61 Respiratory Rate 18 21 19 Blood Pressure 134/88 Blood Pressure [Right Arm] 117/88 134/88 Blood Pressure Mean [Right Arm] 97 103 Blood Pressure Source Automatic Cuff Blood Pressure Source [Right Arm] Automatic Cuff Automatic Cuff Blood Pressure Position Sitting Blood Pressure Position [Right Arm] Sitting Sitting 02 Sat by Pulse Oximetry 97 98 Oxygen Delivery Method Room Air Room Air Room Air - Lab Data Lab results reviewed: Yes: I reviewed the patient's lab results. Lab Results 08/28/19 18:55: WBC 10.5, RBC 5.30, Hgb 15.7, Hct 48.2, MCV 91.0, MCH 29.6, MCHC 32.6, RDW 14.2, Plt Count 250, MPV 8.0, Neut % (Auto) 57.1, Lymph % (Auto) 30.4, [place] % (Auto) 5.9, Eos % (Auto) 5.0, Baso % (Auto) 1.6, Neut # (Auto) 6.0, Lymph # (Auto) 3.2, [place] # (Auto) 0.6, Eos # (Auto) 0.5 H, Baso # (Auto) 0.2 08/28/19 18:55: Sodium 139, Potassium 4.4, Chloride 103, Carbon Dioxide 30, Anion Gap 10.4, BUN 8 L, Creatinine 0.90, Estimated Creat Clear 112, Estimated GFR 87, Est GFR ( Amer) 105, Glucose 102 H, Calcium 9.6, Troponin I < 0.01 Result diagrams: 08/28/19 18:55 08/28/19 18:55 Orders (Tests/Meds): ED MEDICATIONS Generic Name Dose Route Start Last Admin Trade Name Freq PRN Reason Stop Dose Admin Diphenhydramine HCl 50 mg 08/28/19 19:29 08/28/19 19:46 Benadryl 50mg/1ml Vial IV 08/28/19 19:30 50 mg ONCE ONE Administration Fentanyl Citrate 25 mcg 08/28/19 19:29 08/28/19 19:54 Fentanyl 100mcg/2ml Vial IV 08/29/19 19:29 50 mcg Q3MINP PRN Administration Moderate to Severe Pain Fentanyl Citrate 25 mcg 08/28/19 19:29 Fentanyl 250mcg/5ml Vial IV 08/29/19 19:29 Q3MINP PRN Moderate to Severe Pain Fentanyl Citrate 50 mcg 08/28/19 19:29 Fentanyl 250mcg/5ml Vial IV 08/29/19 19:29 Q3MINP PRN Moderate to Severe Pain Flumazenil 0.2 mg 08/28/19 19:29 Romazicon 0.1mg/Ml 5ml Vial IV 08/28/19 23:00 NEEDED PRN Sedation Heparin Sodium (Porcine) 10,000 unit 08/28/19 19:29 08/28/19 19:46 Heparin 1,000 Units/Ml 10ml Vial (Length Control Tester) IV 08/28/19 23:29 5,000 unit NEEDED PRN Administration Emergency Box Lead Performance Support Analyst Heparin Sodium/Sodium Chloride 3,000 unit 08/28/19 19:29 08/28/19 19:47 Heparin 1000 Units/500ml Ns (Length Control Tester) IV 08/28/19 19:30 3,000 unit ONCE ONE Administration Sodium Chloride 1,000 mls @ 25 mls/hr 08/28/19 19:30 08/28/19 19:46 Sod Chlor 0.9% 1000ml Bag IV 08/29/19 19:29 25 mls/hr .Q25H TANNA Administration Lidocaine HCl 20 ml 08/28/19 19:29 Lidocaine 1% 5ml Pf Vial IJ 08/28/19 19:30 ONCE ONE Lidocaine HCl 20 ml 08/28/19 19:29 08/28/19 19:46 Lidocaine 1% 10ml Mdv IJ 08/28/19 19:30 10 ml ONCE ONE Administration Midazolam HCl 1 mg 08/28/19 19:29 Midazolam 2mg/2ml Vial IV 08/29/19 19:29 Q3MINP PRN Sedation Midazolam HCl 1 mg 08/28/19 19:29 08/28/19 19:54 Midazolam 1mg/Ml 5ml Vial IV 08/29/19 19:29 2 mg Q
--- NOTE | 2019-08-28 19:00 | XR_ITS ---
PROCEDURE: XR CHEST PORTABLE CLINICAL HISTORY: chest pain Smoker COMPARISON: ABDPELW/O CT ABD PELVIS W/O CONTRAST from 12/07/2015 CXR1VP XR chest portable from 07/21/2018 FINDINGS: The cardiomediastinal silhouette and pulmonary vascularity are within normal limits. There is a calcified granuloma in the right lower lobe. The remaining lungs are clear. Cervical bone plate is present IMPRESSION: No change with no acute finding Dictated by: Gonsalo Kaminski MD 08/28/2019 20:12 Electronically signed by Gonsalo Kaminski MD in [facility] 08/28/2019 20:12
--- NOTE | 2019-08-28 19:10 | PC.NURSE ---
shift change report given to margaritarn
[2019-08-28 19:17] LABS: Chloride 103 mmol/L (98-107)
[2019-08-28 19:18] LABS: Potassium 4.4 mmoL/L (3.5-5.1); Sodium 139 mmol/L (136-145)
--- NOTE | 2019-08-28 19:20 | PC.NURSE ---
received report from day nurse re: pt situation. states they have a page out to dr moncada who is currently in a procedure and waiting a call back. pt in no acute distress though he remains in some mild-moderate chest discomfort. states the nitro paste placed by day staff was helpful. vss. emv 15
[2019-08-28 19:21] LABS: Anion Gap 10.4 mEq/L (5-15); Blood Urea Nitrogen 8 mg/dl (9-20); Calcium 9.6 mg/dl (8.4-10.2); Carbon Dioxide 30 mmol/L (22.0-30.0); Creatinine Clearance Estimated 112 mL/min (50-200); Estimated Glomerular Filt Rate 87 ml/min (>60); GFR (African American) 105 ML/MIN (>60); Glucose 102 mg/dl (74-100)
--- NOTE | 2019-08-28 19:25 | PC.NURSE ---
received call from dr moncada who spoke with dr crespo and requested patient be immediately brought to laborer/key man. house aware no prep or consent was completed prior to transfer of departments. receiving laborer/key man staff was notified. escorted via stretcher and solar energy specialist to the laborer/key man for unstable angina.
[2019-08-28 19:30] LABS: Basophils # 0.2 K/mm3 (0-0.2); Basophils % 1.6 % (0.1-2.0); Eosinophils # 0.5 K/mm3 (0.0-0.4); Hematocrit 48.2 % (42.0-52.0); Hemoglobin 15.7 g/dL (14.1-18.0); Lymphocytes # 3.2 K/mm3 (0.7-4.5); Lymphocytes % 30.4 % (10-50); Mean Corpuscular HGB Conc 32.6 g/dL (31.8-35.4); Mean Corpuscular Hemoglobin 29.6 pg (27.0-31.2); Monocytes # 0.6 K/mm3 (0.1-1.0); Monocytes % 5.9 % (1.7-9.3); Neutrophils % 57.1 % (37.0-80.0); Platelet Count 250 K/mm3 (142-424); Red Cell Distribution Width 14.2 % (11.5-17.5); White Blood Count 10.5 K/mm3 (4.8-10.8)
[2019-08-28 19:39] LABS: Troponin I < 0.01 ng/ml (0.00-0.034)
--- NOTE | 2019-08-28 19:57 | PC.NURSE ---
spoke with lula and her daughter re: patient's status of being currently in laborer aquatic life. we will return call when patient has successfully finished cath.
--- NOTE | 2019-08-28 20:35 | PC.NURSE ---
spoke to lula, patient's ; [phone]; informed her patient had successfully had a stent placed and was headed to the med/surg floor. she is to call back and speak with patient in about a half an hour.
--- NOTE | 2019-08-28 20:38 | PC.NURSE ---
PT ARRIVED VIA STRETCHER FROM PLASTERER APPRENTICE @ [phone]
[2019-08-29] VITALS (13 sets, daily range): BP systolic 117–154; BP diastolic 60–81; PULSE 60–98; RESP 19–20; TEMP 36.8; O2SAT 93–99; BMI 30.9
--- NOTE | 2019-08-29 04:38 | PC.NURSE ---
Pt resting in bed at this time. (R) femoral cath site C/D/I. No hematoma noted. Pt has ambulated without difficulty to BR. States he doesn't want to be here. Pt stated that he was hungry. Declined hospital food and requested for food to be brought to him or he was going to leave. Pt states he is [place] and eats steak and spaghetti with meatballs. He also stated that he wanted 12 eggs for breakfast. Pt was brought food by friend. During medication reconciliation, Pt stated that he has not taken his meds for 9 months due to not having the money to pay for them. VS are stable. Pt has been sinus to sinus tach on telemetry. Pt denies any pain at this time. No other concerns. Will continue to monitor.
--- NOTE | 2019-08-29 07:28 | HMH.PHAVTE ---
[facility] Pharmacy VTE Monitoring - Patient Demographics Admission date: 08/28/19 Report Date: 08/29/19 Time: 07:28 Allergies/Adverse Reactions: Patient Allergies Penicillins [PENICILLINS] Allergy (Severe, Verified 07/31/18 09:59) NONRESPONSIVE Height: 1.7 m Weight: 89.358 kg Patient Problems: Current Active Problems Angina pectoris (Acute) Chest pain (Acute) Agitation (Acute) Unstable angina pectoris (Acute) HLD (hyperlipidemia) (Chronic) CAD (coronary artery disease) (Chronic) - VTE Risk Labs: VTE Related Lab Results Hgb 15.7 g/dL (14.1-18.0) 08/28/19 18:55 Hct 48.2 % (42.0-52.0) 08/28/19 18:55 Plt Count 250 K/mm3 (142-424) 08/28/19 18:55 BUN 8 mg/dl (9-20) L 08/28/19 18:55 Creatinine 0.90 mg/dl (0.66-1.25) 08/28/19 18:55 Estimated Creat Clear 112 mL/min (50-200) 08/28/19 18:55 VTE Score: 6 VTE Risk Level: Moderate Risk - Prophylaxis VTE Prophylaxis Ordered?: Yes Types of VTE Prophylaxis: TEDS Knee High Location of Applied Device: Bilateral Lower Extremeties - VTE Diagnosis Confirmed Treatment or plan recommended: Continue Current Treatment
--- NOTE | 2019-08-29 09:12 | HMH.CNCARD ---
History of Present Illness Consult date: 08/29/19 Requesting physician: Sumeet Cm Consult reason: chest pain Chief complaint: chest pain Additional Medical History:: 1. Tobacco use, greater than 40-ruid-rueh history 2. History of hyperlipidemia 3. Coronary artery disease A. History of myocardial infarction approximately 2011 with 4 coronary stents placed at the [place], [place] B. STEMI, V. Tach arrest with subsequent cardiac cath, 06/2018 ANGIOGRAPHIC RESULTS: 1. The left main artery angiographically normal 2. The left anterior descending artery had a stent in its midportion. 99.9% in-stent stenosis with LOU II distal flow 3. The circumflex artery had a stent in its midportion. 99% in-stent stenosis with LOU II distal flow 4. Ramus intermedius with stent in its proximal portion with sequential 85% stenosis 5. The right coronary artery large and dominant with 75% eccentric proximal stenosis 6. The OCONNOR ventriculogram reveals normal left ventricular systolic function with an ejection fraction of 60% 7. The left ventricular end-diastolic pressure 12 IMPRESSION: 1. Critical four-vessel coronary artery disease 2. Critical in-stent stenosis in the mid left anterior descending with LOU II distal flow 3. Critical in-stent stenosis in the mid left circumflex with LOU II distal flow 4. Critical in-stent stenosis in the proximal ramus 5. Critical de felton stenosis in the proximal large dominant right coronary artery intermedius 6. Normal left ventricular systolic function 7. Normal left ventricular end-diastolic pressure 8. Successful angioplasty and stenting of the mid left anterior descending, the mid left circumflex, the proximal ramus intermedius and the proximal large dominant right coronary artery with resolute Rajesh drug-eluting stents resulting in 0% residual stenosis 9. Successful placement of Angio-Seal device in the right common femoral artery PLAN: 1. Brilinta 180 mg x1 now than 90 mg twice daily 2. Amiodarone bolus was given secondary to ventricular tachycardia. Patient will be monitored on telemetry 3. Aggressive risk factor modification C. Cardiac cath, 09/28/2018, chest pain, non-compliance with meds ANGIOGRAPHIC RESULTS: 1. The left main artery normal 2. The left anterior descending artery has a stent in the ostial proximal mid segment which is widely patent with mild in-stent restenosis and excellent proximal distal transitioning. The remaining vessels normal 3. The circumflex artery gives rise to a large ramus intermedius which is stent in the ostial proximal segment which is widely patent free of in-stent restenosis with excellent distal and proximal transitioning. The first obtuse marginal artery has a stent in its mid segment is widely patent free of in-stent restenosis with excellent distal and proximal transitioning 4. The right coronary artery is a dominant vessel and has a stent in the proximal segment which is widely patent free of in-stent restenosis with excellent distal proximal transitioning. The mid portion the right coronary artery has a concentric 30-40% nonflow limiting stenosis 5. The OCONNOR ventriculogram reveals normal 65% 6. The left ventricular end-diastolic pressure 25 mmHg IMPRESSION: 1.Widely patent four vessel stents as described above 2.Normal ejection fraction Moderately elevated LVEDP D. UAP/ACS, 08/28/2019, UGO to LAD ANGIOGRAPHIC RESULTS The left main artery Normal The left anterior descending artery Has a proximal 70 to 80% in-stent restenotic lesion. The distal portion of the stent is patent. The remaining LAD is normal. The circumflex artery A large ramus intermedius has a very proximal 50% in-stent restenosis lesion. The distal portion of the stent is patent. The circumflex artery itself has a mid vessel concentric 50 to 60% stenosis immediately proximal to a stent which is widely patent The right co
--- NOTE | 2019-08-29 09:41 | HMH.PHAINT ---
MEDICATION RECONCILIATION COMPLETED ON PATIENT BY CALLING [facility]. ACCORDING TO PHARMACIST, PATIENT HAS NOT FILLED ANYTHING IN OVER A YEAR. PATIENT STATED DURING ROUNDS THAT HE ONLY TAKES ASPIRIN. -MICHAEL PEREZD
[2019-08-29 13:27] LABS: CATHL Activated Clotting Time > 400 SEC (74-125)
--- NOTE | 2019-08-29 13:33 | HMH.HPDC ---
General - General Admission date:: 08/28/19 Discharge date: 08/29/19 *Admission Date: 08/28/19 *Chief complaint: chest pain *History of present illness: 58-year-old male presents to the ED c/o chest pain. He called EMS because he was laying on his floor and having cp. Pt stated pressure like squeezing sensation in his middle of his chest. Patient denies any radiation. Patient denies any shortness of breath or diaphoresis. Patient also states that he has cardiac history that Dr. Hanson's place 5 stents in june of 2018.Pt states he quit taking his meds because they cost to much and he needs to feed his family. Patient denies any cough or shortness of breath. Patient also denies any recent fevers. Pt was taken to paint laboratory technician from [facility] History Medical History: Reports:: Arrhythmia, Atherosclerotic Heart Disease, Atrial Fibrillation, Coronary Artery Disease, Hyperlipidemia, Hypertension, Peripheral Vascular Disease Denies:: Anxiety, Cancer, Diabetes Mellitus Type 1, Diabetes Mellitus Type 2, MRSA *Have you ever received a pneumonia vaccine?: No *Have you received a flu vaccine this season?: No Other Medical History: Reports: Cataracts, Glaucoma Other Surgeries: Yes: Appendectomy, Cardiac Catheterization, Coronary Stent, Other Amputation: No Fractures: Yes - *Social History Educational Level: Completed High School Smoking Status: Former smoker Tobacco Type: cigarettes # Packs/Day (cigarettes): 1 Alcohol Intake: never Substance Use Type: denies use *Occupational Status:: unemployed, retired Housing: house Household Members: spouse *Travel in the last 8 weeks: None - Psychiatric History Pschychiatric History:: Denies:: Anxiety, Post Traumatic Stress Disorder, Suicide Attempt, Psychiatric Treatment Family Hx:: Asthma, Cancer, Coronary Artery Disease, Diabetes, Heart Attack, Hypertension, Stroke Review of Systems - Review of Systems Review of systems:: pertinent systems reviewed and negative unless documented below - Constitutional Denies fatigue - Eyes Denies change in vision - ENT Denies bleeding gums - *Cardiovascular Reports chest pain, Reports chest pain at rest, Reports chest pain with activity, Denies shortness of breath with activity - *Respiratory Denies chest congestion - *Gastrointestinal Denies nausea, Denies vomiting - *Genitourinary Denies urinary frequency - *Musculoskeletal Denies decreased muscle mass - Integumentary/Breasts Denies change in hair, Denies rash - *Neurologic Denies abnormal hearing, Denies fainting, Denies tingling - Psychiatric Denies lack of enjoyment - Endocrine Denies excessive sweating - Hematologic/Lymphatic Denies easy bruising - Allergic/Immunologic Denies itchy eyes Exam Vital signs and Labs for Last 24 Hours: Temp Pulse Resp BP Pulse Ox 98.3 F 82 20 154/81 H 96 08/29/19 08:00 08/29/19 12:00 08/29/19 12:00 08/29/19 12:00 08/29/19 12:00 Laboratory Results - last 24 hr 08/28/19 18:55: WBC 10.5, RBC 5.30, Hgb 15.7, Hct 48.2, MCV 91.0, MCH 29.6, MCHC 32.6, RDW 14.2, Plt Count 250, MPV 8.0, Neut % (Auto) 57.1, Lymph % (Auto) 30.4, Glasscock % (Auto) 5.9, Eos % (Auto) 5.0, Baso % (Auto) 1.6, Neut # (Auto) 6.0, Lymph # (Auto) 3.2, Glasscock # (Auto) 0.6, Eos # (Auto) 0.5 H, Baso # (Auto) 0.2 08/28/19 18:55: Sodium 139, Potassium 4.4, Chloride 103, Carbon Dioxide 30, Anion Gap 10.4, BUN 8 L, Creatinine 0.90, Estimated Creat Clear 112, Estimated GFR 87, Est GFR ( Amer) 105, Glucose 102 H, Calcium 9.6, Troponin I < 0.01 08/28/19 19:03: Activated Clotting Time > 400 H* I & O for Last 24 hours: Intake & Output 08/27/19 08/28/19 08/29/19 08/30/19 11:59 11:59 11:59 11:59 Intake Total 581 / 581 360 / 360 Balance 581 / 581 360 / 360 Weight 197 lb 0.017 oz - Constitutional no acute distress - *Routine HEENT Exam Head: Present: normocephalic Eye: Present: PERRL ENT: Present: mucous membranes moist - *Routine Nec
--- NOTE | 2019-08-29 14:36 | HMH.PHACLD ---
Flavio Roblero has received discharge medication counseling on the following medications: ASPIRIN, METOPROLOL, PLAVIX AND ATORVASTATIN. JAMIE INHIBITOR WAS NOT STARTED DUE TO HYPOTENSION PER MIHAI DUNCAN
== END 2019-08-29 14:25 | disposition home or self-care (01) ==
LOC: ER 19:30 → CATHLAB 19:43 → 2ND 08-29 06:53
PROVIDERS: Internal Medicine; Admitting Provider Emergency Medicine; Emergency Provider Family Medicine; Visit Provider Emergency Medicine
DX: I25.110 Atherosclerotic heart disease of native coronary artery with unstable angina pectoris (principal); T82.855A Stenosis of coronary artery stent, initial encounter; Z95.5 Presence of coronary angioplasty implant and graft; I10 Essential (primary) hypertension; E78.5 Hyperlipidemia, unspecified; Z87.891 Personal history of nicotine dependence; I25.2 Old myocardial infarction; I48.91 Unspecified atrial fibrillation; Z91.120 Patient's intentional underdosing of medication regimen due to financial hardship
CPT/HCPCS: 71045; 80048; 84484; 85025; 85347; 92928; 93005; 93458; 99152; 99153; 99284; C1725; C1760; C1769; C1876; C9600; G0378; J1644; Q9967

== ENCOUNTER 2019-11-07 07:41 | Day surgery (SDC) | payer OTHER, SELFPAY ==
[2019-11-07] VITALS (14 sets, daily range): BP systolic 111–166; BP diastolic 73–104; PULSE 67–80; RESP 16–18; TEMP 36.8; O2SAT 95–98; BMI 30.8
--- NOTE | 2019-11-07 | IR_ITS ---
APPROVED REPORT Patient Location: Outpatient Cribbing Setter: REED Moran RT (R) PROCEDURES Left heart catheterization Left ventriculogram Selective coronary angiogram Drug-eluting stent deployment to the proximal mid circumflex artery Drug-eluting stent deployment to the mid dominant right coronary INDICATION Coronary artery disease, Recurrent angina pectoris class III and IV Informed consent was obtained prior to the procedure. COMPLICATIONS None Estimated Blood Loss: Less than 10 ml TECHNIQUE One percent lidocaine was used to anesthetize the right groin. The right femoral artery was accessed via the Seldinger technique. A 4-Austrian sheath was placed in the right femoral artery. The JL-4 and JR-4 catheter was also used to perform left heart catheterization left ventriculogram and selective coronary angiogram. At the end of the diagnostic procedure therapeutic heparin was administered and the 4 Austrian sheath was exchanged for a 6 Austrian sheath. A JL4 guide catheter was placed in the left main artery and a BMW wire was used to traverse the stenosis in the circumflex artery. A 3 mm x 18 mm resolute charo stent was deployed in the proximal to mid circumflex artery at 20 zeny reducing the severe stenosis to 0%. LOU-3 flow was present before and after the procedure. At the end of the procedure the apparatus was removed and a JR4 catheter was placed in the right coronary artery where the same BMW wire was used to traverse the stenosis. A 3.5 x 38 mm resolute charo stent was deployed at 16 zeny reducing the severe stenosis to 0%. LOU-3 flow was present before and after the procedure. At the end of the procedure the apparatus was removed the groin was reprepped gloves were changed sheath was removed good hemostasis was achieved using Perclose device patient was transferred to the postop holding area in stable condition ANGIOGRAPHIC RESULTS The left main artery Normal The left anterior descending artery Has a stent in the proximal segment with mild 10 to 20% eccentric in-stent restenosis with remaining vessel being widely patent with excellent stent transitioning both proximally and distally. The circumflex artery Gives rise to a 2.5 mm diameter ramus intermedius which has an ostial 80 to 90% stenosis followed by additional 70% stenosis with mid vessel 60% stenosis. The circumflex artery gives rise to a large obtuse marginal artery. There is a proximal to mid vessel focal 80% in-stent stenosis present The right coronary artery Is a dominant vessel and has stents in the proximal segment which are widely patent free of in-stent restenosis followed by mid vessel 70% long mostly eccentric stenosis. Distally there are mild luminal irregularities in the posterior lateral branch The OCONNOR ventriculogram reveals Preserved at 60% The left ventricular end-diastolic pressure 10 mmHg IMPRESSION Coronary artery disease as described above Successful stenting of the circumflex artery severe disease reduced to 0% with one drug-eluting stent Successful stenting of the mid right coronary artery severe disease reduced to 0% with one drug-eluting stent Persistent severe stenosis in the ramus intermedius which originates off the left main artery and a trifurcating manner. Preserved ejection fraction Normal left ventricular end-diastolic pressure PLAN 1. Dual antiplatelet therapy 2. I strongly recommend medical management for the ramus intermedius. Stenting this vessel would cause almost certain encroachment upon both the left ostial LAD as well as circumflex artery. This vessel was patent with LOU-3 flow and should respond well to medical management with maximizing antianginal medications. The patient's
[2019-11-07 08:22] LABS: Basophils # 0.1 K/mm3 (0-0.2); Basophils % 0.6 % (0.1-2.0); Eosinophils # 0.6 K/mm3 (0.0-0.4); Eosinophils % 4.5 % (0.1-12.0); Hematocrit 45.3 % (42.0-52.0); Hemoglobin 14.9 g/dL (14.1-18.0); Lymphocytes # 4.8 K/mm3 (0.7-4.5); Lymphocytes % 34.2 % (10-50); Mean Corpuscular HGB Conc 32.9 g/dL (31.8-35.4); Mean Corpuscular Hemoglobin 30.2 pg (27.0-31.2); Mean Corpuscular Volume 91.8 fl (80-94); Mean Platelet Volume 7.3 fl (7.4-10.4); Monocytes # 0.7 K/mm3 (0.1-1.0); Monocytes % 4.9 % (1.7-9.3); Neutrophils # 7.8 K/mm3 (1.8-7.8); Neutrophils % 55.9 % (37.0-80.0); Platelet Count 365 K/mm3 (142-424); Red Blood Count 4.93 M/mm3 (4.60-6.20); Red Cell Distribution Width 13.6 % (11.5-17.5)
[2019-11-07 08:25] LABS: Chloride 104 mmol/L (98-107); Sodium 141 mmol/L (136-145)
[2019-11-07 08:26] LABS: Potassium 3.4 mmoL/L (3.5-5.1)
[2019-11-07 08:28] LABS: Anion Gap 11.4 mEq/L (5-15); Blood Urea Nitrogen 10 mg/dl (9-20); Carbon Dioxide 29 mmol/L (22.0-30.0); Creatinine Clearance Estimated 126 mL/min (50-200); Estimated Glomerular Filt Rate 99 ml/min (>60); GFR (African American) 120 ML/MIN (>60)
[2019-11-07 08:29] LABS: Calcium 8.8 mg/dl (8.4-10.2); Glucose 105 mg/dl (74-100)
--- NOTE | 2019-11-07 12:54 | HMH.PHACLD ---
Flavio Roblero has received discharge medication counseling on the following medications: CALLED CASTINGS DRAFTER AT 1253. PATIENT HAD ALREADY LEFT. DID NOT WANT TO STAY HERE.
[2019-11-07 14:40] LABS: CATHL Activated Clotting Time 287 SEC (74-125)
== END 2019-11-07 12:47 | disposition home or self-care (01) ==
PROVIDERS: Visit Provider Internal Medicine
DX: I25.110 Atherosclerotic heart disease of native coronary artery with unstable angina pectoris (principal); T82.855A Stenosis of coronary artery stent, initial encounter; I50.33 Acute on chronic diastolic (congestive) heart failure; I11.0 Hypertensive heart disease with heart failure; Z72.0 Tobacco use
CPT/HCPCS: 80048; 85025; 85347; 92928; 93458; 99152; C1725; C1760; C1769; C1876; C1894; C9600; J1644; Q9967

== ENCOUNTER → 2019-11-19 14:22 | Outpatient (CLI) | payer OTHER, SELFPAY ==
--- NOTE | 2019-11-19 14:23 | CA_ITS ---
APPROVED REPORT Alternative Financing Specialist: Janie Cantrell, RVT Indications Leg Pain Hematoma Pt had cath on 11/08/19, c/o bruising and pain rt groin, numbness rt leg Risk Factors CAD Current Smoker Findings Groin: Right Negative Findings Study suggests no evidence of pseudoaneurysm or AV fistula seen in the right groin. Conclusion Study suggests no evidence of pseudoaneurysm or AV fistula seen in the right groin. Electronically signed by : Gonsalo Kaminski MD 11/19/2019 17:15:42
== END ==
PROVIDERS: Visit Provider Internal Medicine
DX: I65.23 Occlusion and stenosis of bilateral carotid arteries (principal); R10.31 Right lower quadrant pain; E78.5 Hyperlipidemia, unspecified; F17.200 Nicotine dependence, unspecified, uncomplicated; I10 Essential (primary) hypertension; I25.110 Atherosclerotic heart disease of native coronary artery with unstable angina pectoris; T14.8XXA Other injury of unspecified body region, initial encounter; Z98.890 Other specified postprocedural states
CPT/HCPCS: 93926

== ENCOUNTER 2019-11-23 02:45 | Emergency (ER) | payer OTHER, SELFPAY ==
[2019-11-23] VITALS (9 sets, daily range): BP systolic 109–142; BP diastolic 60–115; PULSE 59–93; RESP 15–20; TEMP 36.9–37.2; O2SAT 97–99; BMI 31.4
--- NOTE | 2019-11-23 02:40 | ECG_ITS ---
APPROVED REPORT Exam: Resting ECG HR:94 bpm ECG Measurements Heart Rate [address] 152 P 70 QRSd 66 QRS 72 QT 324 T 72 QTc 405 <Conclusion> Normal sinus rhythm with sinus arrhythmia Normal ECG Electronically signed by : Vimal Acosta, 11/25/2019 09:11:16
--- NOTE | 2019-11-23 02:51 | XR_ITS ---
PROCEDURE: XR CHEST PORTABLE Patient Age:59Y CLINICAL HISTORY: chest pain Left-sided chest pain for 2-3 days worse today. Patient is head 12 cardiac stents to recently placed smokes 1 pack a day. COMPARISON: CXR1VP XR chest portable from 07/21/2018 XR CHEST PORTABLE from 08/28/2019 FINDINGS: AP portable is semi-erect chest performed today compared to 08/28/2019. Stable chest with no significant new findings but Stable calcified granuloma complex towards right base of measuring 20 mm project over the anterior right 5th rib end on today's study, is again noted and unchanged . Cardiomediastinal silhouette and pulmonary vascularity are within normal limits.. Slight generous right camacho is unchanged since previous studies The lungs are clear without infiltrates, suspicious nodules, or pleural effusions.. Mild chronic changes again noted No acute bony abnormalities.. Multilevel anterior cervical fusion incidentally noted IMPRESSION: Stable chest. Nothing definitely acute. No acute findings. Dictated by: Hamilton Merchant MD 11/23/2019 09:38 Electronically signed by Hamilton Merchant MD in [place] 11/23/2019 09:38
--- NOTE | 2019-11-23 03:00 | HMH.EDCP ---
ED Disposition Clinical Impression: Angina at rest Disposition: Home, Self-Care Condition on Discharge: Good Instructions: DI for Chest Pain Additional Instructions: see dr moncada monday Referrals: PCP,No [Primary Care Provider] - - Critical Care Critical Care Time: No Attestation: On 11/23/19, the high probability of a clinically significant, sudden or life threatening deterioration of the following system(s) required my full and direct attention, intervention and personal management. The time I documented below is in addition to time spent performing reported procedures but includes the following listed in this critical care notation. Medical Decision Making - Medical Records Medical records reviewed: Yes: I reviewed the patient's medical records. - Guzman Inquiry Pt receiving controlled substance: No Vital Signs: 11/23/19 02:47 11/23/19 03:00 11/23/19 03:05 Temperature 98.9 F Temperature Source Oral Pulse Rate [Right Brachial] 93 H 82 76 Respiratory Rate 18 18 20 Blood Pressure [Right Arm] 140/115 H 122/76 136/86 Blood Pressure Mean [Right Arm] 123 91 102 Blood Pressure Source [Right Arm] Automatic Cuff Blood Pressure Position [Right Arm] Supine 02 Sat by Pulse Oximetry 99 97 97 Oxygen Delivery Method Room Air Nasal Cannula Nasal Cannula Oxygen Flow Rate (LPM) 2 2 2 11/23/19 03:09 11/23/19 04:00 11/23/19 04:31 Temperature Temperature Source Pulse Rate [Right Brachial] 79 61 64 Respiratory Rate 20 15 16 Blood Pressure [Right Arm] 142/85 H 125/66 110/63 Blood Pressure Mean [Right Arm] 104 85 78 Blood Pressure Source [Right Arm] Automatic Cuff Blood Pressure Position [Right Arm] 02 Sat by Pulse Oximetry 98 98 98 Oxygen Delivery Method Nasal Cannula Nasal Cannula Nasal Cannula Oxygen Flow Rate (LPM) 2 2 2 11/23/19 05:00 11/23/19 05:35 Temperature Temperature Source Pulse Rate [Right Brachial] 59 L 63 Respiratory Rate 16 16 Blood Pressure [Right Arm] 109/60 L 122/65 Blood Pressure Mean [Right Arm] 76 84 Blood Pressure Source [Right Arm] Automatic Cuff Automatic Cuff Blood Pressure Position [Right Arm] Sitting Sitting 02 Sat by Pulse Oximetry 99 99 Oxygen Delivery Method Nasal Cannula Nasal Cannula Oxygen Flow Rate (LPM) 2 2 - Lab Data Lab results reviewed: Yes: I reviewed the patient's lab results. Lab Results 11/23/19 02:46: WBC 15.4 H, RBC 4.97, Hgb 14.6, Hct 44.0, MCV 88.4, MCH 29.3, MCHC 33.1, RDW 13.9, Plt Count 361, MPV 7.0 L, Neut % (Auto) 53.0, Lymph % (Auto) 36.9, Travis % (Auto) 6.1, Eos % (Auto) 3.4, Baso % (Auto) 0.6, Neut # (Auto) 8.2 H, Lymph # (Auto) 5.7 H, Travis # (Auto) 0.9, Eos # (Auto) 0.5 H, Baso # (Auto) 0.1, Total Counted 100, Neutrophils % (Manual) 68, Band Neutrophils % 1.0, Lymphocytes % (Manual) 27, Monocytes % (Manual) 3, Eosinophils % (Manual) 1, Platelet Estimate Normal, RBC Morphology Normal 11/23/19 02:46: Sodium 141, Potassium 3.9, Chloride 101, Carbon Dioxide 28, Anion Gap 15.9 H, BUN 14, Creatinine 1.10, Estimated Creat Clear 90, Estimated GFR 69, Est GFR ( Amer) 83, Glucose 110 H, Calcium 9.4, Troponin I < 0.01 11/23/19 05:45: Troponin I < 0.01 Result diagrams: 11/23/19 02:46 11/23/19 02:46 Orders (Tests/Meds): ED MEDICATIONS Generic Name Dose Route Start Last Admin Trade Name Freq PRN Reason Stop Dose Admin Sodium Chloride 1,000 mls @ 999 mls/hr 11/23/19 03:00 11/23/19 03:10 Sod Chlor 0.9% 1000ml Bag IV 11/23/19 04:00 999 mls/hr .Q1H1M TANNA Administration Sodium Chloride 10 ml 11/23/19 02:58 Sodium Chloride 0.9% 10ml Vial IV 12/23/19 02:57 NEEDED PRN to Dilute Lorazepam inj Discontinued Medications Generic Name Dose Route Start Last Admin Trade Name Freq PRN Reason Stop Dose Admin Aspirin 243 mg 11/23/19 02:58 11/23/19 02:46 Aspirin 81mg Chewable Tablet PO 11/23/19 02:59 243 mg ONCE ONE Administration Lorazepam 1 mg 11/23/19 02:58 07/25/20 02:54 Ativan 2mg/
[2019-11-23 03:04] LABS: Basophils # 0.1 K/mm3 (0-0.2); Basophils % 0.6 % (0.1-2.0); Eosinophils # 0.5 K/mm3 (0.0-0.4); Eosinophils % 3.4 % (0.1-12.0); Hemoglobin 14.6 g/dL (14.1-18.0); Lymphocytes # 5.7 K/mm3 (0.7-4.5); Lymphocytes % 36.9 % (10-50); Mean Corpuscular HGB Conc 33.1 g/dL (31.8-35.4); Mean Corpuscular Hemoglobin 29.3 pg (27.0-31.2); Mean Corpuscular Volume 88.4 fl (80-94); Monocytes # 0.9 K/mm3 (0.1-1.0); Monocytes % 6.1 % (1.7-9.3); Neutrophils # 8.2 K/mm3 (1.8-7.8); Platelet Count 361 K/mm3 (142-424); Red Blood Count 4.97 M/mm3 (4.60-6.20); Red Cell Distribution Width 13.9 % (11.5-17.5); White Blood Count 15.4 K/mm3 (4.8-10.8)
--- NOTE | 2019-11-23 03:05 | PC.NURSE ---
0251- 2LNC applied to pt for comfort. o2 sat 98% at this time
[2019-11-23 03:06] LABS: MANUAL DIFFERENTIAL MANUAL DIFFERENTIAL (MANUAL DIFF)
[2019-11-23 03:10] LABS: Anion Gap 15.9 mEq/L (5-15); Blood Urea Nitrogen 14 mg/dl (9-20); Calcium 9.4 mg/dl (8.4-10.2); Carbon Dioxide 28 mmol/L (22.0-30.0); Chloride 101 mmol/L (98-107); Creatinine Clearance Estimated 90 mL/min (50-200); Estimated Glomerular Filt Rate 69 ml/min (>60); GFR (African American) 83 ML/MIN (>60); Glucose 110 mg/dl (74-100); Potassium 3.9 mmoL/L (3.5-5.1); Sodium 141 mmol/L (136-145)
[2019-11-23 03:16] LABS: Eosinophils % 1 % (0-3); Lymphocytes % 27 % (10-50); Monocytes % 3 % (2-9); Neutrophils % 68 % (42-76); Platelet Estimate Normal; RBC Morphology Normal; Total Cells Counted 100
[2019-11-23 03:24] LABS: Troponin I < 0.01 ng/ml (0.00-0.034)
--- NOTE | 2019-11-23 06:30 | PC.NURSE ---
Dr Cm spoke with Dr Hansno for consult.
[2019-11-23 06:34] LABS: Troponin I < 0.01 ng/ml (0.00-0.034)
== END 2019-11-23 07:01 | disposition home or self-care (01) ==
PROVIDERS: Emergency Provider Emergency Medicine
DX: I20.8 Other forms of angina pectoris (principal); I48.91 Unspecified atrial fibrillation; E78.5 Hyperlipidemia, unspecified; I10 Essential (primary) hypertension; F17.210 Nicotine dependence, cigarettes, uncomplicated; Z79.899 Other long term (current) drug therapy
CPT/HCPCS: 71045; 80048; 84484; 85007; 85025; 93005; 96365; 96375; 99284; J2405

== ENCOUNTER → 2019-11-25 10:10 | Outpatient (CLI) | payer OTHER, SELFPAY ==
[2019-11-25 10:59] LABS: Troponin I < 0.01 ng/ml (0.00-0.034)
== END ==
PROVIDERS: Visit Provider Physician Assistant
DX: I20.9 Angina pectoris, unspecified (principal)
CPT/HCPCS: 36415; 84484

== ENCOUNTER 2020-05-26 13:33 | Emergency (ER) | payer OTHER, SELFPAY ==
[2020-05-26 14:35] VITALS: BP 135/87; PULSE 59; RESP 18; TEMP 36.2; O2SAT 98; BMI 32.1
--- NOTE | 2020-05-26 14:56 | HMH.EDUTC ---
[facility] [place] Clinical Impression: Exposure to COVID-19 virus Disposition: Home, Self-Care Condition on Discharge: Good Instructions: Preventing the Spread of Coronavirus Discharge Instructions Additional Instructions: Drink plenty of fluids. Take tylenol for pain or fever. Return if you begin to have difficulty breathing. Follow up with your regular doctor. GO TO THE ER FOR ANY WORSENING SYMPTOMS Prescriptions: Ondansetron [Zofran 4mg ODT] 4 mg PO Q8HP PRN #12 tab.rapdis PRN Reason: Nausea Transmission Status: Received by [facility] Referrals: PCP,No [Primary Care Provider] - Time of Disposition: 15:15 Medical Decision Making - Medical Records Medical records reviewed: No: I reviewed the patient's medical records. - Guzman Inquiry Pt receiving controlled substance: No Vital Signs: 05/26/20 14:35 05/26/20 15:00 Temperature 97.1 F L 97.1 F L Temperature Source Oral Pulse Rate 59 L Pulse Rate [Right Brachial] 59 L Respiratory Rate 18 18 Blood Pressure 135/87 Blood Pressure [Right Arm] 135/87 Blood Pressure Mean [Right Arm] 103 Blood Pressure Source [Right Arm] Automatic Cuff Blood Pressure Position [Right Arm] Sitting 02 Sat by Pulse Oximetry 98 Oxygen Delivery Method Room Air Orders (Tests/Meds): ORDERS Category Date Time Status Covid-19 Nasal PCR Sendout P&C Routine Lab 05/26/20 14:30 Received [facility] [place] - General Stated complaint: COVID TEST Time Seen by Provider: 05/26/20 14:56 Mode of Arrival: Ambulatory Source of Information: Patient Limitations: No Limitations Description of Symptoms (Recalled from Triage Doc. by RN): COVID TEST D/T EXPOSURE.DENIES SYMPTOMS HEENT Symptoms (Recalled from RN notes): No Resp Symptoms (Recalled from RN notes): No Skin Symptoms (Recalled from RN notes): No MS Symptoms (Recalled from RN notes): No Functional Status (Recalled from RN notes): WNL - History of Present Illness Provider Complaint: He states that he has been exposed to covid-19 at his work (his boss' daughter has covid). He denies any symptoms so far. - Related Data Previous Rx's Medication Instructions Recorded metoprolol tartrate 25 mg tablet 25 mg PO BID #60 tab 11/25/19 amlodipine 5 mg tablet 5 mg PO DAILY #30 tab 11/27/19 ranolazine 500 mg tablet,extended 500 mg PO BID #60 tab 12/04/19 release,12 hr nicotine 14 mg/24 hr daily 1 patch TRANSDERMA DAILY #14 each 01/24/20 transdermal patch ramipril 2.5 mg capsule See Rx Instructions .ROUTE 02/13/20 .COMPLEX #30 capsule aspirin 81 mg tablet,delayed See Rx Instructions .ROUTE 04/16/20 release .COMPLEX #30 tablet atorvastatin 80 mg tablet See Rx Instructions .ROUTE 04/16/20 .COMPLEX #30 tablet bupropion HCl 150 mg tablet,12 hr See Rx Instructions .ROUTE 04/16/20 sustained-release .COMPLEX #60 tab clopidogrel 75 mg tablet See Rx Instructions .ROUTE 04/16/20 .COMPLEX #30 tablet isosorbide mononitrate 30 mg See Rx Instructions .ROUTE 04/16/20 tablet,extended release 24 hr .COMPLEX #30 tablet Ondansetron [Zofran 4mg ODT] 4 mg PO Q8HP PRN #12 tab.rapdis 05/26/20 Allergies Allergy/AdvReac Type Severity Reaction Status Date / Time Penicillins [PENICILLINS] Allergy Severe NONRESPONSI Verified 11/25/19 09:07 VE - Worker's Comp Is this a Worker's Comp case?: No [facility] History - Hepatitis A Screen Drug use history?: No High risk sexual behaviors?: No History of sexually transmitted infection?: No Currently employed?: No Childcare worker?: No Do you have indoor plumbing?: Yes Do you have electricity?: Yes Attestation statement:: This patient has been screened for Hepatitis A risk factors. I have reviewed the patient's past medical history: Yes Medical History: Reports:: Arrhythmia, Atherosclerotic Heart Disease, Atrial Fibrillation, Coronary Artery Disease, Hyperlipidemia, Hypertension, Peripheral Vascular Disease Denies:: Anxiety, Cancer, Diabetes Mellitus T
[2020-05-26 15:00] VITALS: BP 135/87; PULSE 59; RESP 18; TEMP 36.2; O2SAT 98
[2020-05-28 08:15] LABS: Covid-19 Nasal PCR Sendout P&C Negative
== END 2020-05-26 15:05 | disposition home or self-care (01) ==
PROVIDERS: Emergency Provider Nurse Practitioner Family
DX: Z20.822 Contact with and (suspected) exposure to COVID-19 (principal); I48.20 Chronic atrial fibrillation, unspecified; I25.10 Atherosclerotic heart disease of native coronary artery without angina pectoris; I10 Essential (primary) hypertension; E78.5 Hyperlipidemia, unspecified; F17.210 Nicotine dependence, cigarettes, uncomplicated; Z79.899 Other long term (current) drug therapy
CPT/HCPCS: 99202; G0463; U0004